=== PATIENT | male | born 1935 | race Caucasian/White ===

== ENCOUNTER 2018-08-18 14:43 | Emergency (ER) | payer MEDICARE, SELFPAY ==
[2018-08-18 14:50] VITALS: BP 124/67; PULSE 65; RESP 18; TEMP 36.1; O2SAT 97; BMI 30.8
--- NOTE | 2018-08-18 15:24 | PC.NURSE ---
low back pain for several months, worsening after fall several weeks ago, denies numbness/tingling/incont, reports MRI taken at [facility] r/t same, finished prednisone taper several weeks ago reports no relief, ambulatory ind with steady gait, reports +3 bilat lower ext edema as baseline. He states he has seen multiple doctors for this issue and is here today to see if they can get anything done.
--- NOTE | 2018-08-18 15:42 | ED.BACK ---
HPI - Back Pain/Injury <SHELL Ford-BC - Last Filed: 08/18/18 21:23> General Chief Complaint: Back Pain/Injury Stated Complaint: back pain Time Seen by Provider: 08/18/18 15:01 Source: patient Mode of arrival: ambulatory Limitations: no limitations History of Present Illness HPI Narrative: Patient presents with chief complaint of lower back pain. He states this is been going on for years. However it got worse several weeks ago after a fall. He did not hit his head or his neck in the fall. After the fall he spoke with his friend who was not reportedly an orthopedic surgeon and Dash who sent in an order for an MRI to be done at an outside facility. Patient states he had the MRI in his friend told him he has spinal stenosis. Patient is requesting to see Dr Gupta in the emergency department. He is requesting something for pain. He states that the steroids he was on or useful for a while, but now he is having pain again. He denies any numbness, tingling, incontinence of bowel or bladder or saddle anesthesia. He denies any urinary symptoms. Related Data Home Medications Medication Instructions Recorded Confirmed metolazone 08/18/18 terazosin 08/18/18 Previous Rx's Medication Instructions Recorded prednisone 40 mg PO DAILY 5 Days #10 tab 08/18/18 Allergies Allergy/AdvReac Type Severity Reaction Status Date / Time No Known Drug Allergies Allergy Verified 08/18/18 14:55 Review of Systems <BLANCA FordBC - Last Filed: 08/18/18 21:23> Review of Systems GENERAL: Denies chills, fatigue, malaise, fever, sweats. HEENT: Denies sinus pain, ear pain, sore throat, difficulty swallowing, dizziness. RESPIRATORY: Denies dyspnea, cough, wheezing, hemoptysis, sputum. CARDIOVASCULAR: Denies chest pain, palpitations, orthopnea, edema, GASTROINTESTINAL: Denies nausea, vomiting, abdominal pain, diarrhea, constipation, melena. : Denies dysuria, frequency, incontinence, hematuria, urinary retention. MUSCULOSKELETAL: See HPI SKIN: Denies rash, skin lesions, or other NEUROLOGIC: Denies weakness, headache, numbness, change in speech, confusion, seizures, incoordination. PSYCHIATRIC: No concerning psychosocial issues. 12 point review of systems is negative except for those stated above Exam <SHELL Ford-MAURA - Last Filed: 08/18/18 21:23> Narrative Exam Narrative: GENERAL: This is a well-nourished, well-developed patient, in no acute distress HEAD: Atraumatic. Normocephalic. No temporal or scalp tenderness. EYES: Pupils equal round and reactive. Extraocular motions intact. No scleral icterus. No injection or drainage. ENT: Nose without bleeding, purulent drainage or septal hematoma. Throat without erythema, tonsillar hypertrophy or exudate. Uvula midline. Airway patent. Hard of hearing NECK: Trachea midline. No JVD or lymphadenopathy. Supple, nontender, no meningeal signs. CARDIOVASCULAR: Regular rate and rhythm without murmurs, gallops, or rubs. RESPIRATORY: Clear to auscultation. Breath sounds equal bilaterally. No wheezes, rales, or rhonchi. GASTROINTESTINAL: Abdomen soft, non-tender, nondistended. No hepato-splenomegaly, or palpable masses. No guarding. EXTREMITIES: No clubbing, cyanosis, or edema. No joint tenderness, effusion, or edema noted. BACK: No CVA or T-spine tenderness to palpation. Patient has tenderness to palpation of L-spine. Patient has tenderness to palpation bilateral paraspinal muscles in L-spine region. NEURO: AOx3. Stiff gait but stable gait. No slurred speech. Radial and Achilles reflexes intact bilaterally. Strength is intact upper and lower extremities bilaterally. SKIN: No rash or erythema. No erythema ecchymosis or rash noted lower back. Initial Vital Signs Initial Vital Signs: Vital Signs Temperature 96.9 F L 08/18/18 14:50 Pulse Rate 65 08/18/18 14:50 Respiratory Rate 18 08/18/18 14:50 Blood Pressure 124/67 08/18/18 14:50 Pulse Oximetry 97 08/18/18 14:50 <Lakeshia Ramirez DO - Last Filed: 08/19/18 08:08> Initial Vital Signs Initial Vital Signs: Vital Signs Temperature 96.9 F L 08/18/18 14:50 Pulse Rate 65 08/18/18 14:50 Respiratory Rate 18 08/18/18 14:50 Blood Pressure 124/67 08/18/18 14:50 Pulse Oximetry 97 08/18/18 14:50 Course <BLANCA Ford - Last Filed: 08/18/18 21:23> Course Narrative: Patient presented with chief complaint of back pain. He states he had a diagnosis of spinal stenosis. MRI results were obtained from outside facility. Impression of MRI was multiple levels of relatively prominent digit 100 of changes are seen including multiple levels of moderate to severe neural foraminal narrowing at several levels of prominent central canal narrowing. Orders Ordered: Discontinued Medications Prednisone (Deltasone) 40 mg PO NOW ONE Stop: 08/18/18 16:23 Last Admin: 08/18/18 16:35 Dose: 40 mg Vital Signs - 8 hr 08/18/18 14:50 Temperature 96.9 F L Pulse Rate 65 Respiratory Rate 18 Blood Pressure 124/67 Pulse Oximetry 97 <Lakeshia Ramirez DO - Last Filed: 08/19/18 08:08> Orders Ordered: Discontinued Medications Prednisone (Deltasone) 40 mg PO NOW ONE Stop: 08/18/18 16:23 Last Admin: 08/18/18 16:35 Dose: 40 mg Vital Signs - 8 hr 08/18/18 14:50 Temperature 96.9 F L Pulse Rate 65 Respiratory Rate 18 Blood Pressure 124/67 Pulse Oximetry 97 MDM - Back Pain/Injury <EVELIN FordP-BC - Last Filed: 08/18/18 21:23> Lab Data Lab Results 08/18/18 Range/Units Unknown Urine Color Yellow Urine Appearance Slightly cloudy Urine pH 5.0 (4.5-8.0) Ur Specific Hollis 1.015 (1.000-1.035) Urine Protein Negative (Negative) Urine Glucose (UA) Negative (Normal) g/dL Urine Ketones Negative (NEGATIVE) Urine Occult Blood Negative (Negative) Urine Nitrate Negative (Negative) Urine Bilirubin Negative (NEGATIVE) Urine Urobilinogen 0.2 (0.2) E.U./dL Ur Leukocyte Esterase 2+ H (NEGATIVE) Urine RBC 0-1/hpf (0-5/HPF) Urine WBC 30-100/hpf H (0-5/HPF) Ur Squamous Epith Cells 0-1 /hpf Urine Bacteria Occasional (0-1) (None) Hyaline Casts 10-30/lpf (None) Ur Culture Indicated? Specimen cultured Micro UA Comment Not Reportable Urine Dip Bedside Urine Glucose Negative Bedside Urine Bilirubin - Negative Bedside Urine Ketone - Negative Urine Specific Hollis 1.020 Bedside Urine Occult Blood - Negative Bedside Urine pH 6.0 Bedside Urine Protein +/- 15 Bedside Urine Urobilinogen - Negative Bedside Urine Nitrite - Negative Bedside Urine Leukocytes +++ 500 Esterase MDM Narrative Medical decision making narrative: Patient presents with chief complaint of lower back pain. MRI illustrates spinal stenosis. Patient arrived to the emergency department presuming that he would be able to see Dr. Finch today for his pain. I gave him contact information for both Dr. Finch as well as [facility]. Of note patient did have leuks on his UA. He declined antibiotics for UTI this point in time but urine culture is pending at this point time. I discussed at length return precautions of numbness, tingling, saddle anesthesia incontinence of bowel or bladder. Patient no questions or concerns upon discharge. I did give him a burst of steroids and offered him pain medication given to spinal stenosis but he declined both NSAIDs and narcotics at this point time. I encouraged him to follow up with primary care provider as well. <Lakeshia Ramirez, DO - Last Filed: 08/19/18 08:08> Lab Data Lab Results 08/18/18 Range/Units Unknown Urine Color Yellow Urine Appearance Slightly cloudy Urine pH 5.0 (4.5-8.0) Ur Specific Hollis 1.015 (1.000-1.035) Urine Protein Negative (Negative) Urine Glucose (UA) Negative (Normal) g/dL Urine Ketones Negative (NEGATIVE) Urine Occult Blood Negative (Negative) Urine Nitrate Negative (Negative) Urine Bilirubin Negative (NEGATIVE) Urine Urobilinogen 0.2 (0.2) E.U./dL Ur Leukocyte Esterase 2+ H (NEGATIVE) Urine RBC 0-1/hpf (0-5/HPF) Urine WBC 30-100/hpf H (0-5/HPF) Ur Squamous Epith Cells 0-1 /hpf Urine Bacteria Occasional (0-1) (None) Hyaline Casts 10-30/lpf (None) Ur Culture Indicated? Specimen cultured Micro UA Comment Not Reportable Urine Dip Bedside Urine Glucose Negative Bedside Urine Bilirubin - Negative Bedside Urine Ketone - Negative Urine Specific Hollis 1.020 Bedside Urine Occult Blood - Negative Bedside Urine pH 6.0 Bedside Urine Protein +/- 15 Bedside Urine Urobilinogen - Negative Bedside Urine Nitrite - Negative Bedside Urine Leukocytes +++ 500 Esterase Discharge Plan Departure Patient Disposition: Home Clinical Impression: Spinal stenosis Discharge Date/Time: 08/18/18 17:16 Interventions: ED Discharge Assessment Last Done: 08/18/18 17:16 Instructions: DI for Low Back Pain, DI for Spinal Stenosis Activity Restrictions/Additional Instructions: I am giving you steroids for spinal stenosis. Please follow-up with your primary care provider. I have given you contact information for Dr. Finch as well as [facility]. Please be re-evaluated if you have any numbness, bowel incontinence, bladder incontinence or saddle anesthesia. We are sending her urine out for culture to see if it grows any bacteria in you may hear about that if there are any questions of infection. Prescriptions: New prednisone 20 mg tablet 40 mg PO DAILY 5 Days Qty: 10 RF: 0 No Action metolazone 2.5 mg tablet RF: 0 terazosin 5 mg capsule RF: 0 Referrals: [facility] [Outside] Alf Finch DO [Physician] - <Lakeshia Ramirez DO - Last Filed: 08/19/18 08:08> Cosign ED Attending Rupinderature Attestation: I was immediately available in the department for consultation. Documentation has been reviewed. I agree with assessment and plan.
[2018-08-18] MEDS: predniSONE 20 MG TABLET 40 MG PO (16:35)
[2018-08-18 16:37] LABS: Bilirubin Urine UA NEGATIVE (NEGATIVE); Color Urine UA YELLOW; Glucose Urine UA NEGATIVE (Normal); Ketones Urine UA NEGATIVE (NEGATIVE); Leukocyte Esterase Urine UA 2+ (NEGATIVE); Nitrite Urine UA Negative (Negative); Occult Blood Urine UA NEGATIVE (Negative); Protein Urine UA NEGATIVE (Negative); Specific Gravity Urine UA 1.015 (1.000-1.035); Urobilinogen Urine UA 0.2 E.U./dL (0.2)
[2018-08-18 16:44] LABS: Appearance Urine UA Slightly Cloudy
[2018-08-18 16:46] LABS: Bacteria Urine Occasional (0-1); Culture Indicated Urine Specimen Cultured; Hyaline Casts Urine 10-30/LPF; RBC Urine 0-1/HPF (0-5/HPF); Squamous Epithelial Cell Urine 0-1 /HPF; WBC Urine 30-100/HPF (0-5/HPF)
--- NOTE | 2018-08-21 17:21 | PC.NURSE ---
follow up call, pt better, next appt with dr evans not till november. no questions from pts pleased with visit.
== END 2018-08-18 17:16 | disposition home or self-care (01) ==
PROVIDERS: Emergency Provider Nurse Practitioner Family
DX: M48.00 Spinal stenosis, site unspecified (principal)
CPT/HCPCS: 81001; 81003; 87086; 99282; 99283

== ENCOUNTER 2018-12-09 12:56 | Outpatient (CLI) | payer OTHER, SELFPAY ==
[2018-12-09] VITALS (9 sets, daily range): BP systolic 134–161; BP diastolic 64–85; PULSE 62–69; RESP 16–18; TEMP 35.9; O2SAT 93–99
--- NOTE | 2018-12-09 12:58 | DI.RAD.S_ITS ---
PROCEDURE: PAIN L INTERLAMINAR/CAUDAL INJ INDICATIONS: SPINAL STENOSIS FINDINGS: Fluoroscopic spot filming was performed to verify placement of spinal needles at the L3-L4 level(s), as labeled on the films. Appropriate location(s) of the needle tip(s) was confirmed by injection of iodinated contrast. IMPRESSION: Fluoroscopy for pain management. Dictated by: Stephanie Kaufman M.D. on 12/09/2018 at 17:42 Approved by: Stephanie Kaufman M.D. on 12/09/2018 at 17:42
[2018-12-09] MEDS: MIDAZOLAM 5 MG/5 ML VIAL IV (13:55)
[2018-12-09] MEDS: BUPIVACAINE 0.25% (PF) VIAL 2 ML INJ (14:05)
[2018-12-09] MEDS: DEXAMETHASONE 10 MG/ML VIAL 20 MG INJ (14:06)
[2018-12-09] MEDS: methylPREDNISolone acetate 80 MG/ML VIAL INJ (14:06)
[2018-12-09] MEDS: IOPAMIDOL 15 ML VIAL 3 ML INJ (14:06)
--- NOTE | 2018-12-09 14:11 | P.PCN_ITS ---
Procedures Date/Time Date of procedure: 12/09/18 Time of procedure: 14:10 General Procedure description: POST OP DIAGNOSIS 1. HNP WITH RADICULAR FEATURES, 2. MULTILEVEL CENTRAL STENOSIS, PROCEDURES 1. FLUORSCOPICALLY GUIDED CONTRAST CONTROLLED INTERLAMINAR EPIDURAL STEROID INJECTION - L3/4 PHYSICIAN: Alf Finch DO INDICATIONS is referred by Dr. Reyes for treatment of Bilateral Foraminal Stenosis L>R LE symptoms. FINDINGS Multilevel Central Spinal Stenosis with Nerve Root Compression DESCRIPTION OF PROCEDURE Fluoroscopically guided, contrast-controlled L3/4 translaminar epidural steroid injection. Following denial of allergy and review of potential side effects and complications, including, but not necessarily limited to, infection, allergic reaction, local tissue breakdown, temporary as well as permanent nerve injury, paralysis, stroke and possible , the patient indicated that the patient understood and agreed to proceed. An informed consent document was signed by the patient, witnessed by a nurse, and placed in the patient's chart. Additionally, other treatment options including modalities, medications, and physical therapy were reviewed with the patient. After review of previous anaesthesic history and IV conscious sedation the patient was deemed safe to proceed with todays procedure with IV conscious sedation as ASA class II designation. Safety time-out was performed to confirm patient ID, procedure to be performed and site of procedure. IV sedation was accomplished with a combination of 2mg was administered by the RN after DO order , titrated to patient comfort during the course of the procedure while the patient remained responsive to all verbal commands. In the prone position, following sterile prep and drape of the lumbar region, the L3/4 translaminar space was identified fluoroscopically. The skin was anesthetized via a 25-gauge, 1.5-inch needle with 1% lidocaine solution. At this point, a 22-gauge short bevel spinal needle was atraumatically introduced and advanced under fluoroscopic guidance into the region of the L3/4 translaminar space. Depth was confirmed on lateral view. Radiological data, including multiple fluoroscopic views of the lumbar spine, reveal a spinal needle at the L3/4 translaminar space. Lateral views then show placement of the needle in the epidural space. Subsequent views show contrast material flowing superiorly and inferiorly in the epidural space. No vascular or intrathecal uptake is observed. At this point, using loss of resistance technique with saline and air, the epidural space was entered. This was confirmed following negative aspiration with injection of approximately 1.5 cc of Isovue 200, showing excellent epidural flow without vascular or intrathecal uptake. At this point, 1 cc of 1 % lidocaine solution combined with 3 cc or 20 mg of dexamethasone and 80mg Depo medrol was injected without incident. The patient tolerated the procedure well without signs or symptoms of complications prior to transfer to the recovery area continued monitoring without incident. The patient was then transferred to the recovery area where they were observed for an appropriate period of time after the injection. The patient reported a VAS score of 6 prior to the procedure and a post- procedure VAS of 0. Total Fluoroscopy Time: 11.8 seconds Total Conscious Sedation Time: 24min POST OP INSTRUCTIONS The patient was provided a Pain Log to continue to record their response to the target-specific procedure prior to follow-up visit with their referring physician. Additionally, specific post-injection care instructions and a contact number to our office were provided if concerns arise regarding possible complications associated with the procedure are suspected. Alf Finch, Complications: none
--- NOTE | 2018-12-09 14:29 | PC.NURSE ---
pt tolerated procedure and assisted pt off the table 2 person, pt able to help. Transferred pt to pre procedure room via w/c for resumed monitoring by Ghazala BRAMBILA.
--- NOTE | 2018-12-10 16:13 | PC.NURSE ---
FOLLOW UP CALL MADE. PT STATES HE IS MORE MOBILE AND PAIN IS GONE. DENIES QUESTIONS/CONCERNS.
== END 2018-12-09 14:58 | disposition home or self-care (01) ==
LOC: RAD 12:58
PROVIDERS: PCP Emergency Medicine Emergency Medical Services; Visit Provider Physical Medicine & Rehabilitation
DX: M51.16 Intervertebral disc disorders with radiculopathy, lumbar region (principal); M48.061 Spinal stenosis, lumbar region without neurogenic claudication; M47.27 Other spondylosis with radiculopathy, lumbosacral region
CPT/HCPCS: 62323; 99152; J1040; J1100; J2250

== ENCOUNTER 2019-01-27 14:21 | Outpatient (CLI) | payer OTHER, SELFPAY ==
--- NOTE | 2019-01-27 14:23 | DI.RAD.S_ITS ---
PROCEDURE: PAIN L INTERLAMINAR/CAUDAL INJ INDICATIONS: SPONDYLOSIS FINDINGS: Fluoroscopic spot filming was performed to verify placement of spinal needles at the L4-L5 level(s), as labeled on the films. Appropriate location(s) of the needle tip(s) was confirmed by injection of iodinated contrast. Dictated by: Fran Joyner M.D. on 01/27/2019 at 15:32 Approved by: Fran Joyner M.D. on 01/27/2019 at 15:32
[2019-01-27 14:32] VITALS: BP 125/59; PULSE 65; RESP 18; TEMP 36.1; O2SAT 97
[2019-01-27 14:49] VITALS: BP 123/64; PULSE 73; RESP 16; O2SAT 98
--- NOTE | 2019-01-27 14:50 | PC.NURSE ---
NO SEDATION MEDS GIVEN AT THIS TIME
[2019-01-27 14:53] VITALS: BP 123/64; PULSE 70; RESP 16; O2SAT 97
[2019-01-27] MEDS: BUPIVACAINE 0.25% (PF) VIAL 2 ML INJ (14:54)
[2019-01-27] MEDS: DEXAMETHASONE 10 MG/ML VIAL 20 MG INJ (14:55)
[2019-01-27] MEDS: IOPAMIDOL 15 ML VIAL 3 ML INJ (14:55)
[2019-01-27 14:56] VITALS: BP 136/66; PULSE 70; RESP 16; O2SAT 97
--- NOTE | 2019-01-27 14:57 | PC.NURSE ---
NO SEDATION MEDS GIVEN. ASSISTING PT OFF TABLE AND TRANSPORTING TO POST PROC AREA IN STABLE CONDITION
[2019-01-27 15:03] VITALS: BP 130/100; PULSE 66; RESP 18; O2SAT 97
--- NOTE | 2019-01-27 15:05 | P.PCN_ITS ---
Procedures Date/Time Date of procedure: 01/27/19 Time of procedure: 15:04 General Procedure description: PROVIDER: Alf Finch DO Operative Note PREOP DIAGNOSIS 1. HNP WITH RADICULAR FEATURES, 2. MULTILEVEL CENTRAL STENOSIS, POST OP DIAGNOSIS 1. HNP WITH RADICULAR FEATURES, 2. MULTILEVEL CENTRAL STENOSIS PROCEDURES 1. FLUORSCOPICALLY GUIDED CONTRAST CONTROLLED INTERLAMINAR EPIDURAL STEROID INJECTION -L4/5 PHYSICIAN: Alf Finch DO INDICATIONs: is referred by for treatment of Bilateral Foraminal Stenosis R>L LE symptoms. FINDINGS Multilevel Central Spinal Stenosis with Nerve Root Compression DESCRIPTION OF PROCEDURE Fluoroscopically guided, contrast-controlled L4/5 translaminar epidural steroid injection. Following denial of allergy and review of potential side effects and complications, including, but not necessarily limited to, infection, allergic reaction, local tissue breakdown, temporary as well as permanent nerve injury, paralysis, stroke and possible , the patient indicated that the patient understood and agreed to proceed. An informed consent document was signed by the patient, witnessed by a nurse, and placed in the patient's chart. Additionally, other treatment options including modalities, medications, and physical therapy were reviewed with the patient. After review of previous anaesthesic history and IV conscious sedation the patient was deemed safe to proceed with todays procedure with IV conscious sedation as ASA class II designation. Safety time-out was performed to confirm patient ID, procedure to be performed and site of procedure. IV sedation was deemed unnecessary and thus not administered by the RN after DO order, titrated to patient comfort during the course of the procedure while the patient remained responsive to all verbal commands In the prone position, following sterile prep and drape of the lumbar region, the L4/5 translaminar space was identified fluoroscopically. The skin was anesthetized via a 25-gauge, 1.5-inch needle with 1% lidocaine solution. At this point, a 22-gauge short bevel spinal needle was atraumatically introduced and advanced under fluoroscopic guidance into the region of the L4/5 translaminar space. Depth was confirmed on lateral view. Radiological data, including multiple fluoroscopic views of the lumbar spine, reveal a spinal needle at the L4/5 translaminar space. Lateral views then show placement of the needle in the epidural space. Subsequent views show contrast material flowing superiorly and inferiorly in the epidural space. No vascular or intrathecal uptake is observed. At this point, using loss of resistance technique with saline and air, the epidural space was entered. This was confirmed following negative aspiration with injection of approximately 1.5 cc of Isovue 200, showing excellent epidural flow without vascular or intrathecal uptake. At this point, 1 cc of 1% lidocaine solution combined with 2cc or 20mg of dexamethasone was injected without incident. The patient tolerated the procedure well without signs or symptoms of complications prior to transfer to the recovery area continued monitoring without incident. The patient was then transferred to the recovery area where they were observed for an appropriate period of time after the injection. The patient reported a VAS score of 6 prior to the procedure and a post- procedure VAS of 0. Total Fluoroscopy Time: 11.8 seconds, 8.99 mGy Total Conscious Sedation Time: 24min POST OP INSTRUCTIONS The patient was provided a Pain Log to continue to record their response to the target-specific procedure prior to follow-up visit with their referring physician. Additionally, specific post-injection care instructions and a contact number to our office were provided if concerns arise regarding possible complications associated with the procedure are suspected. Alf Finch DO Complications: none
--- NOTE | 2019-01-28 15:09 | PC.NURSE ---
Follow up call made but patient did not answer phone so message left.
== END 2019-01-27 15:42 ==
LOC: RAD 14:22
PROVIDERS: PCP Emergency Medicine Emergency Medical Services; Visit Provider Physical Medicine & Rehabilitation
DX: M51.16 Intervertebral disc disorders with radiculopathy, lumbar region (principal); M48.061 Spinal stenosis, lumbar region without neurogenic claudication; M47.27 Other spondylosis with radiculopathy, lumbosacral region
CPT/HCPCS: 62323; J1100; J2250

== ENCOUNTER 2019-02-24 14:30 | Outpatient (RCR) | payer OTHER, SELFPAY ==
--- NOTE | 2018-09-22 17:13 | PT.OPPOC ---
Current Diagnoses Low back pain (09/22/18) Provider Visit Care Team Role Provider Type Robin eRyes MD Attending Provider Non-Staff Primary Care Provider Specialty: Emergency Medicine Address: [address] [place] [address], [id number] Email: Plan Of Care PT-OP-T Assessment and Plan Start: 09/22/18 16:27 Freq: Status: Active Protocol: Document 09/22/18 17:22 MARTIN (Rec: 10/06/18 07:31 EA [id number]) Physical Therapy Assessment Rehab Potential Rehabilitation Potential Fair Evaluation Complexity Number of Personal Factors/Comorbidities 3 or More Number of Body Systems Impaired 3 Clinical Presentation at Evaluation Evolving Impairments Impairments Activity Tolerance Gait Pain Posture ROM Soft Tissue Mobility Strength Other Concerns Fall Risk Yes Goals Five Impairment No HEP in place Nursing Home Goal (LTG) Patient will comply to HEP with good understanding to safety. LTG Duration 4 wks Four Impairment Impaired lifting mechanics [employer] Goal (LTG) Patient will perform good lifting mechanics to decrease condition worsening. LTG Duration 4 wks Three Impairment Impaired walking tolerance [employer] Goal (LTG) Patient will ambulate more than 10 mins with no increase in symptoms LTG Duration 4 wks Two Impairment Impaired standing tolerance [employer] Goal (LTG) Patient will stand more than 10 mins with no increase in symptoms LTG Duration 4 wks One Impairment Oswestry score of 26/50 [employer] Goal (LTG) Patient will have Oswetry low back pain score of mor then 40 /50 LTG Duration 4 wks Assessment Summary Assessment Pleasant 82 y/o M patient with a referring diagnosis of low back pain. Patient presented today with bed mobility and gait difficulty with decreased standing tolerance. 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 Palpation reveals tender over SI joint, paralumbars, QL , and Lumbosacral fascia. 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 Due to above mentioned dysfunction, patient is limited in functional mobility that requires standing and bending. In my professional opinion, Patient would benefit with skilled PT to reach functional goals and improve quality of life. Physical Therapy Plan Frequency and Duration Frequency of Treatment 2x/Week Duration of Treatment 12 wks Plan of Care Start Date 09/22/18 Plan of Care End Date 12/15/18 Therapeutic Interventions Therapeutic Interventions Gait Training Home Exercise Program Joint Mobilizations Manual Therapy Patient/Caregiver Education Self-Care/Home Management Therapeutic Exercises Modalities Cold Pack/Ice Massage Electric Stimulation Hot Packs Ultrasound Next Visit Focus/Plan Next Note Type Treatment Note Plan of Care Dates Plan of Care Start Date 09/22/18 Plan of Care End Date 12/15/18 Please Sign and Return: I have reviewed this Plan of Care and certify that the skilled therapy services above are required to meet the patient?s needs. Physician Signature Date Printed Name and Credentials Clinical Instructor Signature Printed Name and Credentials
--- NOTE | 2018-09-22 17:13 | PT.OIE ---
Current Diagnoses Low back pain (09/22/18) Provider Visit Care Team Role Provider Type Robin Reyes MD Attending Provider Non-Staff Primary Care Provider Specialty: Emergency Medicine Address: [address] [place] [address], [id number] Email: Physical Therapy Initial Evaluation PT-OP-A Visit Information Start: 09/22/18 16:27 Freq: Status: Active Protocol: Document 09/22/18 17:22 EA (Rec: 10/06/18 07:31 EA [id number]) Out-Patient Physical Therapy Visit Information Visit Information Visit Type Initial Evaluation Total Visit Minutes 40 Visit Number 1 Evaluation Information Evaluation Date 09/22/18 PT-OP-B Current Condition Start: 09/22/18 16:27 Freq: Status: Active Protocol: Document 09/22/18 17:22 EA (Rec: 10/06/18 07:31 EA [id number]) Current Condition History of Current Condition Onset Date June 2018 History of Current Condition Present condition has been chronic for more than 5 years and exacerbated last June 2018 with no known reason. Patient had RLE surgery while in [place] and denies regain of full RLE strength. 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 [facility] X-ray done: Spinal stenosis dx. Future Testing and Treatments Planned None identified. 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 Current Functional Impairments (Reported) Functional Limitations- ADL's Indep with difficulty in all activities with lifting and bending Functional Limitations- Mobility/Gait Indep with limited distance Functional Limitations- Work/School Limited at work in the machine shop PT-OP-C Subjective Start: 09/22/18 16:27 Freq: Status: Active Protocol: Document 09/22/18 17:22 EA (Rec: 10/06/18 07:31 EA [id number]) OP-PT Subjective Patient Comments Patient Comments C/O localized low back pain rated 6/10 which is more in standing and walking activities. Patient Reported Progress Worse Patient Questionnaires Oswestry Low Back Index Oswestry Score 26/50 Oswestry Impairment 40 to 59% Impaired (Score 40- 59) OP-PT Pain Assessment Location Bilateral Lower Back Pain Location Details Paraspinals, SI joint Intensity 5 Scale Used Numeric (1 - 10) Description Aching Frequency Intermittent Pain Aggravating Factors Activity Standing Walking Bending Lifting Patient Stated Pain Goal 1 Home Pain Medication Use Pain Medications Used Yes Pain Behaviors Pain Behaviors Holding Area PT-OP-F Manual Assessment Start: 09/22/18 16:27 Freq: Status: Active Protocol: Document 09/22/18 17:22 EA (Rec: 10/06/18 07:31 EA [id number]) Manual Assessments Soft Tissue Assessment Soft Tissue Mobility Assessment Tight Paralumbars, QL. PT-OP-G Mobility & Gait Start: 09/22/18 16:27 Freq: Status: Active Protocol: Document 09/22/18 17:22 EA (Rec: 10/06/18 07:31 EA [id number]) OP Gait Assessment Gait Gait Assistance Required: Independent Able to Maintain Weight Bearing Status Yes During Gait Gait Deviations General Gait Pattern Antalgic Lateral Trunk Lean Factors Limiting Gait Function Factors Limiting Gait Function Decreased Activity Tolerance Decreased Strength Pain PT-OP-J Posture/Palpation/Skin Start: 09/22/18 16:27 Freq: Status: Active Protocol: Document 09/22/18 17:25 EA (Rec: 10/07/18 07:29 EA [id number]) Posture Evaluation Position Standing Evaluation View lat/post L-Spine Posture Increased Lordosis Pelvis Posture Anteriorly Tilted Comments Posture Comments Fair posture with increased lumbar lordosis Palpation Assessment Location One Palpation Location Both Paralumbars, QL, SI joint Palpation Findings Soft Tissue Tightness Tenderness Skin Assessment Other Assessments Skin Assessment Comments Bilateral pedal edema pitting edema PT-OP-K Range of Motion Start: 09/22/18 16:27 Freq: Status: Active Protocol: Document 09/22/18 17:25 EA (Rec: 10/07/18 07:29 EA [id number]) Lumbar Spine Range of Motion Lumbar Spine Active Percentage Testing Position Standing Flexion 75 Extension 60 Rotation Left 50 Rotation Right 50 Lateral Flexion Left 30 Lateral Flexion Right 40 ROM Limitations Soft Tissue Tightness Pain PT-OP-L Special Tests Start: 09/22/18 16:27 Freq: Status: Active Protocol: Document 09/22/18 17:05 EA (Rec: 10/07/18 08:10 EA [id number]) Special Tests Lumbar Spine Special Tests Stork Test Test Results - Slump Test Results - Other- 1 Test Results + Debbie's PT-OP-M Strength Start: 09/22/18 16:27 Freq: Status: Active Protocol: Document 09/22/18 17:05 EA (Rec: 10/07/18 08:10 EA [id number]) Hip Strength Hip Manual Muscle Testing Right Flexion (L2) 2+ Poor+ Extension (S1) 3+ Fair+ Abduction 3+ Fair+ Adduction 4 Good External Rotation 3- Fair- Internal Rotation 3- Fair- Knee Strength Knee Manual Muscle Testing Right Flexion (S2) 3+ Fair+ Extension (L3) 3+ Fair+ Ankle/Foot Strength Ankle and Foot Manual Muscle Testing Right Dorsiflexion (L4) 3- Fair- Plantarflexion (S1) 3- Fair- Inversion 3- Fair- Eversion (S1) 3- Fair- PT-OP-Q Treatments Start: 09/22/18 16:27 Freq: Status: Active Protocol: Document 09/22/18 17:10 EA (Rec: 10/07/18 08:11 EA [id number]) Self-Care/Home Management Treatment Education Patient Education Home Exercise Program Joint Protection Pain Management Posture PT-OP-T Assessment and Plan Start: 09/22/18 16:27 Freq: Status: Active Protocol: Document 09/22/18 17:22 EA (Rec: 10/06/18 07:31 EA [id number]) Physical Therapy Assessment Rehab Potential Rehabilitation Potential Fair Evaluation Complexity Number of Personal Factors/Comorbidities 3 or More Number of Body Systems Impaired 3 Clinical Presentation at Evaluation Evolving Impairments Impairments Activity Tolerance Gait Pain Posture ROM Soft Tissue Mobility Strength Other Concerns Fall Risk Yes Goals Five Impairment No HEP in place Snf Goal (LTG) Patient will comply to HEP with good understanding to safety. LTG Duration 4 wks Four Impairment Impaired lifting mechanics [employer] Sales Goal (LTG) Patient will perform good lifting mechanics to decrease condition worsening. LTG Duration 4 wks Three Impairment Impaired walking tolerance Snf Goal (LTG) Patient will ambulate more than 10 mins with no increase in symptoms LTG Duration 4 wks Two Impairment Impaired standing tolerance [employer] Goal (LTG) Patient will stand more than 10 mins with no increase in symptoms LTG Duration 4 wks One Impairment Oswestry score of 26/50 [employer] Goal (LTG) Patient will have Oswetry low back pain score of mor then 40 /50 LTG Duration 4 wks Assessment Summary Assessment Pleasant 82 y/o M patient with a referring diagnosis of low back pain. Patient presented today with bed mobility and gait difficulty with decreased standing tolerance. 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 Palpation reveals tender over SI joint, paralumbars, QL , and Lumbosacral fascia. 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 Due to above mentioned dysfunction, patient is limited in functional mobility that requires standing and bending. In my professional opininion, Patient would benefit with skilled PT to reach functional goal and improve quality of life. Physical Therapy Plan Frequency and Duration Frequency of Treatment 2x/Week Duration of Treatment 12 wks Plan of Care Start Date 09/22/18 Plan of Care End Date 12/15/18 Therapeutic Interventions Therapeutic Interventions Gait Training Home Exercise Program Joint Mobilizations Manual Therapy Patient/Caregiver Education Self-Care/Home Management Therapeutic Exercises Modalities Cold Pack/Ice Massage Electric Stimulation Hot Packs Ultrasound Next Visit Focus/Plan Next Note Type Treatment Note
--- NOTE | 2018-10-15 10:08 | PT.OTN ---
Current Diagnoses Low back pain (10/15/18) Physical Therapy Treatment Note PT-OP-A Visit Information Start: 09/22/18 16:27 Freq: Status: Active Protocol: Document 10/15/18 09:35 EA (Rec: 10/15/18 09:38 EA [id number]) Out-Patient Physical Therapy Visit Information Visit Information Visit Type Treatment Note Visit Start Time 09:00 Visit Stop Time 09:45 Total Visit Minutes 45 Visit Number 2 Number of HIGH SCHOOL [employer]ACH Visits 0 PT-OP-B Current Condition Start: 09/22/18 16:27 Freq: Status: Active Protocol: Document 09/22/18 17:22 EA (Rec: 10/06/18 07:31 EA [id number]) Current Condition History of Current Condition Onset Date June 2018 History of Current Condition Present condition has been chronic for more than 5 years and excacerbated last June 2018 with no known reason. Patient had RLE surgery while in [place] and denies regain of full RLE strength. 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 [facility] X-ray done: Spinal stenosis dx. Future Testing and Treatments Planned None identified. 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 Current Functional Impairments (Reported) Functional Limitations- ADL's Indep with difficulty in all activities with lifting and bending Functional Limitations- Mobility/Gait Indep with limited distance Functional Limitations- Work/School Limited at work in the machine shop PT-OP-C Subjective Start: 09/22/18 16:27 Freq: Status: Active Protocol: Document 10/15/18 09:35 EA (Rec: 10/15/18 09:38 EA [id number]) OP-PT Subjective Patient Comments Patient Comments Pt reports low back pain is the same PT-OP-F Manual Assessment Start: 09/22/18 16:27 Freq: Status: Active Protocol: Document 09/22/18 17:22 EA (Rec: 10/06/18 07:31 EA [id number]) Manual Assessments Soft Tissue Assessment Soft Tissue Mobility Assessment Tight Paralumbars, QL. PT-OP-G Mobility & Gait Start: 09/22/18 16:27 Freq: Status: Active Protocol: Document 09/22/18 17:22 EA (Rec: 10/06/18 07:31 EA [id number]) OP Gait Assessment Gait Gait Assistance Required: Independent Able to Maintain Weight Bearing Status Yes During Gait Gait Deviations General Gait Pattern Antalgic Lateral Trunk Lean Factors Limiting Gait Function Factors Limiting Gait Function Decreased Activity Tolerance Decreased Strength Pain PT-OP-J Posture/Palpation/Skin Start: 09/22/18 16:27 Freq: Status: Active Protocol: Document 09/22/18 17:25 EA (Rec: 10/07/18 07:29 EA [id number]) Posture Evaluation Position Standing Evaluation View lat/post L-Spine Posture Increased Lordosis Pelvis Posture Anteriorly Tilted Comments Posture Comments Fair posture with increased lumbar lordosis Palpation Assessment Location One Palpation Location Both Paralumbars, QL, SI joint Palpation Findings Soft Tissue Tightness Tenderness Skin Assessment Other Assessments Skin Assessment Comments Bilateral pedal edema pitting edema PT-OP-K Range of Motion Start: 09/22/18 16:27 Freq: Status: Active Protocol: Document 09/22/18 17:25 EA (Rec: 10/07/18 07:29 EA [id number]) Lumbar Spine Range of Motion Lumbar Spine Active Percentage Testing Position Standing Flexion 75 Extension 60 Rotation Left 50 Rotation Right 50 Lateral Flexion Left 30 Lateral Flexion Right 40 ROM Limitations Soft Tissue Tightness Pain PT-OP-L Special Tests Start: 09/22/18 16:27 Freq: Status: Active Protocol: Document 09/22/18 17:05 EA (Rec: 10/07/18 08:10 EA [id number]) Special Tests Lumbar Spine Special Tests Stork Test Test Results - Slump Test Results - Other- 1 Test Results + Debbie's PT-OP-M Strength Start: 09/22/18 16:27 Freq: Status: Active Protocol: Document 09/22/18 17:05 EA (Rec: 10/07/18 08:10 EA [id number]) Hip Strength Hip Manual Muscle Testing Right Flexion (L2) 2+ Poor+ Extension (S1) 3+ Fair+ Abduction 3+ Fair+ Adduction 4 Good External Rotation 3- Fair- Internal Rotation 3- Fair- Knee Strength Knee Manual Muscle Testing Right Flexion (S2) 3+ Fair+ Extension (L3) 3+ Fair+ Ankle/Foot Strength Ankle and Foot Manual Muscle Testing Right Dorsiflexion (L4) 3- Fair- Plantarflexion (S1) 3- Fair- Inversion 3- Fair- Eversion (S1) 3- Fair- PT-OP-Q Treatments Start: 09/22/18 16:27 Freq: Status: Active Protocol: Document 10/15/18 09:35 EA (Rec: 10/15/18 09:38 EA [id number]) Cardio Equipment Recumbent Stepper (Sci-Fit) Duration (Minutes) 6 Resistance 1.5 Seat Position 12 Therapeutic Exercises Supine Exercises 2 Supine Exercise Name SKTC (Gentle) Side bilateral Reps/Minutes x 15 SH x 2 reps 1 Supine Exercise Name Passive hamstringand piriformis gentle stretch Side bilateral Reps/Minutes x 15 SH x 2 reps Sitting Exercises 1 Sitting Exercise Name Lumbars ext stretch (Leaning fwd Side bilateral Reps/Minutes x 30SH x 2 reps Comments assess breathing Manual Therapy Treatment Soft Tissue Mobilization 1 Body Location Paralumbars/ Left QL Mobilization Type Myofascial Release Rolling Sustained Pressure Trigger Point Release Body Position Sitting Comments Bolster in the front to support upper body when leaning fwd. PT-OP-R Modalities Start: 09/22/18 16:27 Freq: Status: Active Protocol: Document 10/15/18 09:42 EA (Rec: 10/15/18 09:43 EA [id number]) Electric Stimulation Electric Stimulation Interferential Current (IFC) Body Location Paralumbars; left QL Duration (Minutes) 15 Intensity 14 Combined With Heat/Cold Hot Pack PT-OP-T Assessment and Plan Start: 09/22/18 16:27 Freq: Status: Active Protocol: Document 10/15/18 09:43 EA (Rec: 10/15/18 09:46 EA [id number]) Physical Therapy Assessment Assessment Summary Assessment Patient requires helps from supine to sit; gentle manual therapy is necessary as patient is very sensitive to pain. Tolerated treatment with no signs of cardiopulmonary symptoms. Physical Therapy Plan Next Visit Focus/Plan Next Note Type Treatment Note Next Visit Plan Gradual excercises is necessary due to patient decreased tolerance.
--- NOTE | 2018-10-22 18:45 | PT.OTN ---
Current Diagnoses Low back pain (10/22/18) Physical Therapy Treatment Note PT-OP-A Visit Information Start: 09/22/18 16:27 Freq: Status: Active Protocol: Document 10/22/18 16:00 HH (Rec: 10/22/18 18:45 [id number]) Out-Patient Physical Therapy Visit Information Visit Information Visit Type Treatment Note Visit Start Time 16:00 Visit Stop Time 16:45 Total Visit Minutes 45 Visit Number 3 Number of DUST SAMPLER Visits 0 PT-OP-B Current Condition Start: 09/22/18 16:27 Freq: Status: Active Protocol: Document 09/22/18 17:22 EA (Rec: 10/06/18 07:31 EA [id number]) Current Condition History of Current Condition Onset Date June 2018 History of Current Condition Present condition has been chronic for more than 5 years and excacerbated last June 2018 with no known reason. Patient had RLE surgery while in [place] and denies regain of full RLE strength. 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 [facility] X-ray done: Spinal stenosis dx. Future Testing and Treatments Planned None identified. 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 Current Functional Impairments (Reported) Functional Limitations- ADL's Indep with difficulty in all activities with lifting and bending Functional Limitations- Mobility/Gait Indep with limited distance Functional Limitations- Work/School Limited at work in the machine shop PT-OP-C Subjective Start: 09/22/18 16:27 Freq: Status: Active Protocol: Document 10/22/18 16:00 HH (Rec: 10/22/18 18:45 HH [email or web address]) OP-PT Subjective Patient Comments Patient Comments Pt presents to clinic My back pain is around the same 4 /10, symptoms get worse during bending motions and i have not done any exercises at home . Patient Reported Progress Same OP-PT Pain Assessment Location Bilateral Lower Back Intensity 4 Scale Used Numeric (1 - 10) Description Aching Dull Frequency Constant Pain Aggravating Factors Position Changing Position Bending PT-OP-F Manual Assessment Start: 09/22/18 16:27 Freq: Status: Active Protocol: Document 09/22/18 17:22 EA (Rec: 10/06/18 07:31 EA [id number]) Manual Assessments Soft Tissue Assessment Soft Tissue Mobility Assessment Tight Paralumbars, QL. PT-OP-G Mobility & Gait Start: 09/22/18 16:27 Freq: Status: Active Protocol: Document 09/22/18 17:22 EA (Rec: 10/06/18 07:31 EA [id number]) OP Gait Assessment Gait Gait Assistance Required: Independent Able to Maintain Weight Bearing Status Yes During Gait Gait Deviations General Gait Pattern Antalgic Lateral Trunk Lean Factors Limiting Gait Function Factors Limiting Gait Function Decreased Activity Tolerance Decreased Strength Pain PT-OP-J Posture/Palpation/Skin Start: 09/22/18 16:27 Freq: Status: Active Protocol: Document 09/22/18 17:25 EA (Rec: 10/07/18 07:29 EA [id number]) Posture Evaluation Position Standing Evaluation View lat/post L-Spine Posture Increased Lordosis Pelvis Posture Anteriorly Tilted Comments Posture Comments Fair posture with increased lumbar lordosis Palpation Assessment Location One Palpation Location Both Paralumbars, QL, SI joint Palpation Findings Soft Tissue Tightness Tenderness Skin Assessment Other Assessments Skin Assessment Comments Bilateral pedal edema pitting edema PT-OP-K Range of Motion Start: 09/22/18 16:27 Freq: Status: Active Protocol: Document 09/22/18 17:25 EA (Rec: 10/07/18 07:29 EA [id number]) Lumbar Spine Range of Motion Lumbar Spine Active Percentage Testing Position Standing Flexion 75 Extension 60 Rotation Left 50 Rotation Right 50 Lateral Flexion Left 30 Lateral Flexion Right 40 ROM Limitations Soft Tissue Tightness Pain PT-OP-L Special Tests Start: 09/22/18 16:27 Freq: Status: Active Protocol: Document 09/22/18 17:05 EA (Rec: 10/07/18 08:10 EA [id number]) Special Tests Lumbar Spine Special Tests Stork Test Test Results - Slump Test Results - Other- 1 Test Results + Debbie's PT-OP-M Strength Start: 09/22/18 16:27 Freq: Status: Active Protocol: Document 09/22/18 17:05 EA (Rec: 10/07/18 08:10 EA [id number]) Hip Strength Hip Manual Muscle Testing Right Flexion (L2) 2+ Poor+ Extension (S1) 3+ Fair+ Abduction 3+ Fair+ Adduction 4 Good External Rotation 3- Fair- Internal Rotation 3- Fair- Knee Strength Knee Manual Muscle Testing Right Flexion (S2) 3+ Fair+ Extension (L3) 3+ Fair+ Ankle/Foot Strength Ankle and Foot Manual Muscle Testing Right Dorsiflexion (L4) 3- Fair- Plantarflexion (S1) 3- Fair- Inversion 3- Fair- Eversion (S1) 3- Fair- PT-OP-Q Treatments Start: 09/22/18 16:27 Freq: Status: Active Protocol: Document 10/22/18 16:00 HH (Rec: 10/22/18 18:45 HH [email or web address]) Therapeutic Exercises Sidelying Exercises SL elbow press to sit Sidelying Exercise Name SL to sit Side right Reps/Minutes 10 Standing Exercises standing trunk ext and flexion Reps/Minutes 10 standing hip hinge Equipment Used red RTB Reps/Minutes 10 Neuro Re-Education Treatment Other Activities seated neural glide Details with B LE extended Reps/Duration 10 PT-OP-R Modalities Start: 09/22/18 16:27 Freq: Status: Active Protocol: Document 10/15/18 09:42 EA (Rec: 10/15/18 09:43 EA [id number]) Electric Stimulation Electric Stimulation Interferential Current (IFC) Body Location Paralumbars; left QL Duration (Minutes) 15 Intensity 14 Combined With Heat/Cold Hot Pack PT-OP-T Assessment and Plan Start: 09/22/18 16:27 Freq: Status: Active Protocol: Document 10/22/18 16:00 HH (Rec: 10/22/18 18:45 [email or web address]) Physical Therapy Assessment Progress Towards Goals Progress Towards Goals Slow Progress due to Activity Tolerance Slow Progress due to Medical Issues Slow Progress due to Noncompliance Slow Progress - Other Progress Comments Pt reports he does not like to exercise and he has never done HEP. Assessment Summary Assessment pt presents to clinic and stated my back pain has been the same 02/18 which get worse during bending movements. And I did not do any exercise since i started therapy. Upon assessment, pt reports his LBP increases during seated flexion and standing flexion who also demonstrates significant thoracic kyphosis along with decreased lumbar flexion and hip flexion. Pt presents difficulty performing pelvic tilt possibly due to neuromuscular inhibition from chronic LBP. Pt is then instructed to perform seated neural glide with active trunk ext and flexion (B LE extended ); standing hip hinge with red resistance band at hip; Resisted trunk flexion and extension. Pt denies LBP after during reassessment with seated flexion and standing flexion. Pt education is given as well to encourage active HEP participation and emphasize the impact of active lifestyle on LBP. Pt cont requires skilled PT to address his significant loss of trunk mobility and insufficient abdominal and trunk extensors strength. Physical Therapy Plan Therapeutic Interventions Therapeutic Interventions Home Exercise Program Neuromuscular Re-education Patient/Caregiver Education Soft Tissue Mobilization Therapeutic Activities Therapeutic Exercises Next Visit Focus/Plan Next Note Type Treatment Note Next Visit Plan Cont trunk stabilization training posterior chain neural glide hip hinge lifting mechanics lumbopelvic movement pattern neuro mary
--- NOTE | 2018-10-27 10:57 | PT.OTN ---
Current Diagnoses Low back pain (10/27/18) Physical Therapy Treatment Note PT-OP-A Visit Information Start: 09/22/18 16:27 Freq: Status: Active Protocol: Document 10/27/18 09:37 EA (Rec: 10/27/18 09:44 EA [id number]) Out-Patient Physical Therapy Visit Information Visit Information Visit Type Treatment Note Visit Start Time 09:00 Visit Stop Time 09:45 Total Visit Minutes 45 Visit Number 4 Number of COLLEGE COACH Visits 0 PT-OP-B Current Condition Start: 09/22/18 16:27 Freq: Status: Active Protocol: Document 09/22/18 17:22 EA (Rec: 10/06/18 07:31 EA [id number]) Current Condition History of Current Condition Onset Date June 2018 History of Current Condition Present condition has been chronic for more than 5 years and excacerbated last June 2018 with no known reason. Patient had RLE surgery while in [place] and denies regain of full RLE strength. 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 [facility] X-ray done: Spinal stenosis dx. Future Testing and Treatments Planned None identified. 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 Patient Reported Progress Same PT-OP-F Manual Assessment Start: 09/22/18 16:27 Freq: Status: Active Protocol: Document 09/22/18 17:22 EA (Rec: 10/06/18 07:31 EA [id number]) Manual Assessments Soft Tissue Assessment Soft Tissue Mobility Assessment Tight Paralumbars, QL. PT-OP-G Mobility & Gait Start: 09/22/18 16:27 Freq: Status: Active Protocol: Document 09/22/18 17:22 EA (Rec: 10/06/18 07:31 EA [id number]) OP Gait Assessment Gait Gait Assistance Required: Independent Able to Maintain Weight Bearing Status Yes During Gait Gait Deviations General Gait Pattern Antalgic Lateral Trunk Lean Factors Limiting Gait Function Factors Limiting Gait Function Decreased Activity Tolerance Decreased Strength Pain PT-OP-J Posture/Palpation/Skin Start: 09/22/18 16:27 Freq: Status: Active Protocol: Document 09/22/18 17:25 EA (Rec: 10/07/18 07:29 EA [id number]) Posture Evaluation Position Standing Evaluation View lat/post L-Spine Posture Increased Lordosis Pelvis Posture Anteriorly Tilted Comments Posture Comments Fair posture with increased lumbar lordosis Palpation Assessment Location One Palpation Location Both Paralumbars, QL, SI joint Palpation Findings Soft Tissue Tightness Tenderness Skin Assessment Other Assessments Skin Assessment Comments Bilateral pedal edema pitting edema PT-OP-K Range of Motion Start: 09/22/18 16:27 Freq: Status: Active Protocol: Document 09/22/18 17:25 EA (Rec: 10/07/18 07:29 EA [id number]) Lumbar Spine Range of Motion Lumbar Spine Active Percentage Testing Position Standing Flexion 75 Extension 60 Rotation Left 50 Rotation Right 50 Lateral Flexion Left 30 Lateral Flexion Right 40 ROM Limitations Soft Tissue Tightness Pain PT-OP-L Special Tests Start: 09/22/18 16:27 Freq: Status: Active Protocol: Document 09/22/18 17:05 EA (Rec: 10/07/18 08:10 EA [id number]) Special Tests Lumbar Spine Special Tests Stork Test Test Results - Slump Test Results - Other- 1 Test Results + Debbie's PT-OP-M Strength Start: 09/22/18 16:27 Freq: Status: Active Protocol: Document 09/22/18 17:05 EA (Rec: 10/07/18 08:10 EA [id number]) Hip Strength Hip Manual Muscle Testing Right Flexion (L2) 2+ Poor+ Extension (S1) 3+ Fair+ Abduction 3+ Fair+ Adduction 4 Good External Rotation 3- Fair- Internal Rotation 3- Fair- Knee Strength Knee Manual Muscle Testing Right Flexion (S2) 3+ Fair+ Extension (L3) 3+ Fair+ Ankle/Foot Strength Ankle and Foot Manual Muscle Testing Right Dorsiflexion (L4) 3- Fair- Plantarflexion (S1) 3- Fair- Inversion 3- Fair- Eversion (S1) 3- Fair- PT-OP-Q Treatments Start: 09/22/18 16:27 Freq: Status: Active Protocol: Document 10/27/18 09:37 EA (Rec: 10/27/18 09:44 EA [id number]) Cardio Equipment Recumbent Stepper (Sci-Fit) Duration (Minutes) 6 Resistance 1.5 Seat Position 12 Manual Therapy Treatment Soft Tissue Mobilization 1 Body Location Paralumbars/ Left and right QL Mobilization Type Myofascial Release Rolling Sustained Pressure Trigger Point Release Body Position Sitting Comments Leaned on table. decrased depth with and intensity with sustained pressure and rollinmg as patient did not tolerated deep tissue. PT-OP-R Modalities Start: 09/22/18 16:27 Freq: Status: Active Protocol: Document 10/27/18 09:37 EA (Rec: 10/27/18 09:44 EA [id number]) Electric Stimulation Electric Stimulation Interferential Current (IFC) Body Location Paralumbars; left and right QL Duration (Minutes) 15 Intensity 14 Combined With Heat/Cold Hot Pack PT-OP-T Assessment and Plan Start: 09/22/18 16:27 Freq: Status: Active Protocol: Document 10/27/18 09:37 EA (Rec: 10/27/18 09:44 EA [id number]) Physical Therapy Assessment Assessment Summary Assessment Pt unable to tolerated deep tissue massage; deep effluerage to helps tigthness and tenderness. Continue with the current plan. Physical Therapy Plan Next Visit Focus/Plan Next Note Type Treatment Note Next Visit Plan Cont with current treatment: modalities to helps lessen pain and stiffness.
--- NOTE | 2018-11-10 11:09 | PT.OTN ---
Current Diagnoses Low back pain (11/10/18) Physical Therapy Treatment Note PT-OP-A Visit Information Start: 09/22/18 16:27 Freq: Status: Active Protocol: Document 11/10/18 09:52 EA (Rec: 11/10/18 10:27 EA [id number]) Out-Patient Physical Therapy Visit Information Visit Information Visit Type Treatment Note Visit Start Time 09:00 Visit Stop Time 09:45 Total Visit Minutes 45 Visit Number 5 Number of HISTORY CARD CLERK Visits 0 PT-OP-B Current Condition Start: 09/22/18 16:27 Freq: Status: Active Protocol: Document 09/22/18 17:22 EA (Rec: 10/06/18 07:31 EA [id number]) Current Condition History of Current Condition Onset Date June 2018 History of Current Condition Present condition has been chronic for more than 5 years and excacerbated last June 2018 with no known reason. Patient had RLE surgery while in [place] and denies regain of full RLE strength. 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 [facility] X-ray done: Spinal stenosis dx. Future Testing and Treatments Planned None identified. 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 Current Functional Impairments (Reported) Functional Limitations- ADL's Indep with difficulty in all activities with lifting and bending Functional Limitations- Mobility/Gait Indep with limited distance Functional Limitations- Work/School Limited at work in the machine shop PT-OP-C Subjective Start: 09/22/18 16:27 Freq: Status: Active Protocol: Document 11/10/18 09:52 EA (Rec: 11/10/18 10:27 EA [id number]) OP-PT Subjective Patient Comments Patient Comments Pt reports low back pain increased after last session; states 2 days after it back the same pain level, Pt reports that his bacl PT-OP-F Manual Assessment Start: 09/22/18 16:27 Freq: Status: Active Protocol: Document 09/22/18 17:22 EA (Rec: 10/06/18 07:31 EA [id number]) Manual Assessments Soft Tissue Assessment Soft Tissue Mobility Assessment Tight Paralumbars, QL. PT-OP-G Mobility & Gait Start: 09/22/18 16:27 Freq: Status: Active Protocol: Document 09/22/18 17:22 EA (Rec: 10/06/18 07:31 EA [id number]) OP Gait Assessment Gait Gait Assistance Required: Independent Able to Maintain Weight Bearing Status Yes During Gait Gait Deviations General Gait Pattern Antalgic Lateral Trunk Lean Factors Limiting Gait Function Factors Limiting Gait Function Decreased Activity Tolerance Decreased Strength Pain PT-OP-J Posture/Palpation/Skin Start: 09/22/18 16:27 Freq: Status: Active Protocol: Document 09/22/18 17:25 EA (Rec: 10/07/18 07:29 EA [id number]) Posture Evaluation Position Standing Evaluation View lat/post L-Spine Posture Increased Lordosis Pelvis Posture Anteriorly Tilted Comments Posture Comments Fair posture with increased lumbar lordosis Palpation Assessment Location One Palpation Location Both Paralumbars, QL, SI joint Palpation Findings Soft Tissue Tightness Tenderness Skin Assessment Other Assessments Skin Assessment Comments Bilateral pedal edema pitting edema PT-OP-K Range of Motion Start: 09/22/18 16:27 Freq: Status: Active Protocol: Document 09/22/18 17:25 EA (Rec: 10/07/18 07:29 EA [id number]) Lumbar Spine Range of Motion Lumbar Spine Active Percentage Testing Position Standing Flexion 75 Extension 60 Rotation Left 50 Rotation Right 50 Lateral Flexion Left 30 Lateral Flexion Right 40 ROM Limitations Soft Tissue Tightness Pain PT-OP-L Special Tests Start: 09/22/18 16:27 Freq: Status: Active Protocol: Document 09/22/18 17:05 EA (Rec: 10/07/18 08:10 EA [id number]) Special Tests Lumbar Spine Special Tests Stork Test Test Results - Slump Test Results - Other- 1 Test Results + Debbie's PT-OP-M Strength Start: 09/22/18 16:27 Freq: Status: Active Protocol: Document 09/22/18 17:05 EA (Rec: 10/07/18 08:10 EA [id number]) Hip Strength Hip Manual Muscle Testing Right Flexion (L2) 2+ Poor+ Extension (S1) 3+ Fair+ Abduction 3+ Fair+ Adduction 4 Good External Rotation 3- Fair- Internal Rotation 3- Fair- Knee Strength Knee Manual Muscle Testing Right Flexion (S2) 3+ Fair+ Extension (L3) 3+ Fair+ Ankle/Foot Strength Ankle and Foot Manual Muscle Testing Right Dorsiflexion (L4) 3- Fair- Plantarflexion (S1) 3- Fair- Inversion 3- Fair- Eversion (S1) 3- Fair- PT-OP-Q Treatments Start: 09/22/18 16:27 Freq: Status: Active Protocol: Document 11/10/18 09:52 EA (Rec: 11/10/18 10:27 EA [id number]) Cardio Equipment Recumbent Stepper (Sci-Fit) Duration (Minutes) 6 Resistance 1.5 Seat Position 12 Therapeutic Exercises Supine Exercises 5 Supine Exercise Name Lumbars rotation/lower Reps/Minutes x 15 reps x 2 sets 4 Supine Exercise Name PPT head lift Reps/Minutes x 5SH x 5 reps Comments avoid valsalva 3 Supine Exercise Name PPT Reps/Minutes x 5SH x 10 reps Comments avoid valsalva 2 Supine Exercise Name SKTC (Gentle) Side bilateral Reps/Minutes x 15 SH x 2 reps 1 Supine Exercise Name Passive hamstringand piriformis gentle stretch Side bilateral Reps/Minutes x 15 SH x 2 reps Manual Therapy Treatment Soft Tissue Mobilization 1 Body Location Paralumbars/ Left and right QL Mobilization Type Myofascial Release Rolling Sustained Pressure Trigger Point Release Body Position Sitting Comments Leaned on table. decrased depth with and intensity with sustained pressure and rollinmg as patient did not tolerated deep tissue. PT-OP-R Modalities Start: 09/22/18 16:27 Freq: Status: Active Protocol: Document 11/10/18 09:52 EA (Rec: 11/10/18 10:27 EA [id number]) Electric Stimulation Electric Stimulation Interferential Current (IFC) Body Location Paralumbars; left and right QL Duration (Minutes) 15 Intensity 14 Combined With Heat/Cold Hot Pack Comments sitting position PT-OP-T Assessment and Plan Start: 09/22/18 16:27 Freq: Status: Active Protocol: Document 11/10/18 09:52 EA (Rec: 11/10/18 10:27 EA [id number]) Physical Therapy Assessment Assessment Summary Assessment Pt tolerated treatment with minor discomfort during manual PT. Pt recommended to use heat at home. Physical Therapy Plan Next Visit Focus/Plan Next Note Type Treatment Note Next Visit Plan Cont with current treatment: modalities to helps lessen pain and stiffness.
--- NOTE | 2018-11-13 12:11 | PT.OTN ---
Current Diagnoses Low back pain (11/13/18) Physical Therapy Treatment Note PT-OP-A Visit Information Start: 09/22/18 16:27 Freq: Status: Active Protocol: Document 11/13/18 10:25 EA (Rec: 11/13/18 10:32 EA [id number]) Out-Patient Physical Therapy Visit Information Visit Information Visit Type Treatment Note Visit Start Time 09:45 Visit Stop Time 10:30 Total Visit Minutes 45 Visit Number 6 Number of STEAM TRAP WORKER Visits 0 PT-OP-B Current Condition Start: 09/22/18 16:27 Freq: Status: Active Protocol: Document 09/22/18 17:22 EA (Rec: 10/06/18 07:31 EA [id number]) Current Condition History of Current Condition Onset Date June 2018 History of Current Condition Present condition has been chronic for more than 5 years and excacerbated last June 2018 with no known reason. Patient had RLE surgery while in [place] and denies regain of full RLE strength. 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 [facility] X-ray done: Spinal stenosis dx. Future Testing and Treatments Planned None identified. 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 Patient Reported Progress Same PT-OP-F Manual Assessment Start: 09/22/18 16:27 Freq: Status: Active Protocol: Document 09/22/18 17:22 EA (Rec: 10/06/18 07:31 EA [id number]) Manual Assessments Soft Tissue Assessment Soft Tissue Mobility Assessment Tight Paralumbars, QL. PT-OP-G Mobility & Gait Start: 09/22/18 16:27 Freq: Status: Active Protocol: Document 09/22/18 17:22 EA (Rec: 10/06/18 07:31 EA [id number]) OP Gait Assessment Gait Gait Assistance Required: Independent Able to Maintain Weight Bearing Status Yes During Gait Gait Deviations General Gait Pattern Antalgic Lateral Trunk Lean Factors Limiting Gait Function Factors Limiting Gait Function Decreased Activity Tolerance Decreased Strength Pain PT-OP-J Posture/Palpation/Skin Start: 09/22/18 16:27 Freq: Status: Active Protocol: Document 09/22/18 17:25 EA (Rec: 10/07/18 07:29 EA [id number]) Posture Evaluation Position Standing Evaluation View lat/post L-Spine Posture Increased Lordosis Pelvis Posture Anteriorly Tilted Comments Posture Comments Fair posture with increased lumbar lordosis Palpation Assessment Location One Palpation Location Both Paralumbars, QL, SI joint Palpation Findings Soft Tissue Tightness Tenderness Skin Assessment Other Assessments Skin Assessment Comments Bilateral pedal edema pitting edema PT-OP-K Range of Motion Start: 09/22/18 16:27 Freq: Status: Active Protocol: Document 09/22/18 17:25 EA (Rec: 10/07/18 07:29 EA [id number]) Lumbar Spine Range of Motion Lumbar Spine Active Percentage Testing Position Standing Flexion 75 Extension 60 Rotation Left 50 Rotation Right 50 Lateral Flexion Left 30 Lateral Flexion Right 40 ROM Limitations Soft Tissue Tightness Pain PT-OP-L Special Tests Start: 09/22/18 16:27 Freq: Status: Active Protocol: Document 09/22/18 17:05 EA (Rec: 10/07/18 08:10 EA [id number]) Special Tests Lumbar Spine Special Tests Stork Test Test Results - Slump Test Results - Other- 1 Test Results + Debbie's PT-OP-M Strength Start: 09/22/18 16:27 Freq: Status: Active Protocol: Document 09/22/18 17:05 EA (Rec: 10/07/18 08:10 EA [id number]) Hip Strength Hip Manual Muscle Testing Right Flexion (L2) 2+ Poor+ Extension (S1) 3+ Fair+ Abduction 3+ Fair+ Adduction 4 Good External Rotation 3- Fair- Internal Rotation 3- Fair- Knee Strength Knee Manual Muscle Testing Right Flexion (S2) 3+ Fair+ Extension (L3) 3+ Fair+ Ankle/Foot Strength Ankle and Foot Manual Muscle Testing Right Dorsiflexion (L4) 3- Fair- Plantarflexion (S1) 3- Fair- Inversion 3- Fair- Eversion (S1) 3- Fair- PT-OP-Q Treatments Start: 09/22/18 16:27 Freq: Status: Active Protocol: Document 11/13/18 10:25 EA (Rec: 11/13/18 10:32 EA [id number]) Cardio Equipment Recumbent Stepper (Sci-Fit) Duration (Minutes) 7 Resistance 1.5 Seat Position 12 Therapeutic Exercises Supine Exercises 5 Supine Exercise Name Lumbars rotation/lower Reps/Minutes x 15 reps x 2 sets 3 Supine Exercise Name PPT Reps/Minutes x 5SH x 10 reps Comments avoid valsalva Manual Therapy Treatment Soft Tissue Mobilization 1 Body Location Paralumbars/ Left and right QL Mobilization Type Myofascial Release Rolling Sustained Pressure Trigger Point Release Body Position Sitting Comments Leaned on table. decrased depth with and intensity with sustained pressure and rollinmg as patient did not tolerated deep tissue. PT-OP-R Modalities Start: 09/22/18 16:27 Freq: Status: Active Protocol: Document 11/13/18 10:25 EA (Rec: 11/13/18 10:32 EA [id number]) Electric Stimulation Electric Stimulation Interferential Current (IFC) Body Location Paralumbars; left and right QL Duration (Minutes) 15 Intensity 16 Combined With Heat/Cold Hot Pack Comments sitting position PT-OP-T Assessment and Plan Start: 09/22/18 16:27 Freq: Status: Active Protocol: Document 11/13/18 10:25 EA (Rec: 11/13/18 10:32 EA [id number]) Physical Therapy Assessment Assessment Summary Assessment Patient unable to tolerate sitted lumbar stretch. Patient is not showing improvement at this time. Educated patient with proper lifting mechanics. Physical Therapy Plan Next Visit Focus/Plan Next Note Type Treatment Note Next Visit Plan Cont with current treatment: modalities to helps lessen pain and stiffness.
--- NOTE | 2018-11-17 11:13 | PT.OTN ---
Current Diagnoses Low back pain (11/17/18) Physical Therapy Treatment Note PT-OP-A Visit Information Start: 09/22/18 16:27 Freq: Status: Active Protocol: Document 11/17/18 10:20 EA (Rec: 11/17/18 10:27 EA [id number]) Out-Patient Physical Therapy Visit Information Visit Information Visit Type Treatment Note Visit Start Time 09:45 Visit Stop Time 10:30 Total Visit Minutes 45 Visit Number 7 Number of ROUTER SETTER Visits 0 PT-OP-B Current Condition Start: 09/22/18 16:27 Freq: Status: Active Protocol: Document 09/22/18 17:22 EA (Rec: 10/06/18 07:31 EA [id number]) Current Condition History of Current Condition Onset Date June 2018 History of Current Condition Present condition has been chronic for more than 5 years and excacerbated last June 2018 with no known reason. Patient had RLE surgery while in [place] and denies regain of full RLE strength. 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 [facility] X-ray done: Spinal stenosis dx. Future Testing and Treatments Planned None identified. 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 Pt also quite prustrated with medical insurance authorization; states he has been calling them and approved; however did not call his doctor yet. Patient Reported Progress Improving PT-OP-F Manual Assessment Start: 09/22/18 16:27 Freq: Status: Active Protocol: Document 09/22/18 17:22 EA (Rec: 10/06/18 07:31 EA [id number]) Manual Assessments Soft Tissue Assessment Soft Tissue Mobility Assessment Tight Paralumbars, QL. PT-OP-G Mobility & Gait Start: 09/22/18 16:27 Freq: Status: Active Protocol: Document 09/22/18 17:22 EA (Rec: 10/06/18 07:31 EA [id number]) OP Gait Assessment Gait Gait Assistance Required: Independent Able to Maintain Weight Bearing Status Yes During Gait Gait Deviations General Gait Pattern Antalgic Lateral Trunk Lean Factors Limiting Gait Function Factors Limiting Gait Function Decreased Activity Tolerance Decreased Strength Pain PT-OP-J Posture/Palpation/Skin Start: 09/22/18 16:27 Freq: Status: Active Protocol: Document 09/22/18 17:25 EA (Rec: 10/07/18 07:29 EA [id number]) Posture Evaluation Position Standing Evaluation View lat/post L-Spine Posture Increased Lordosis Pelvis Posture Anteriorly Tilted Comments Posture Comments Fair posture with increased lumbar lordosis Palpation Assessment Location One Palpation Location Both Paralumbars, QL, SI joint Palpation Findings Soft Tissue Tightness Tenderness Skin Assessment Other Assessments Skin Assessment Comments Bilateral pedal edema pitting edema PT-OP-K Range of Motion Start: 09/22/18 16:27 Freq: Status: Active Protocol: Document 09/22/18 17:25 EA (Rec: 10/07/18 07:29 EA [id number]) Lumbar Spine Range of Motion Lumbar Spine Active Percentage Testing Position Standing Flexion 75 Extension 60 Rotation Left 50 Rotation Right 50 Lateral Flexion Left 30 Lateral Flexion Right 40 ROM Limitations Soft Tissue Tightness Pain PT-OP-L Special Tests Start: 09/22/18 16:27 Freq: Status: Active Protocol: Document 09/22/18 17:05 EA (Rec: 10/07/18 08:10 EA [id number]) Special Tests Lumbar Spine Special Tests Stork Test Test Results - Slump Test Results - Other- 1 Test Results + Debbie's PT-OP-M Strength Start: 09/22/18 16:27 Freq: Status: Active Protocol: Document 09/22/18 17:05 EA (Rec: 10/07/18 08:10 EA [id number]) Hip Strength Hip Manual Muscle Testing Right Flexion (L2) 2+ Poor+ Extension (S1) 3+ Fair+ Abduction 3+ Fair+ Adduction 4 Good External Rotation 3- Fair- Internal Rotation 3- Fair- Knee Strength Knee Manual Muscle Testing Right Flexion (S2) 3+ Fair+ Extension (L3) 3+ Fair+ Ankle/Foot Strength Ankle and Foot Manual Muscle Testing Right Dorsiflexion (L4) 3- Fair- Plantarflexion (S1) 3- Fair- Inversion 3- Fair- Eversion (S1) 3- Fair- PT-OP-Q Treatments Start: 09/22/18 16:27 Freq: Status: Active Protocol: Document 11/17/18 10:20 EA (Rec: 11/17/18 10:27 EA [id number]) Cardio Equipment Recumbent Stepper (Sci-Fit) Duration (Minutes) 7 Resistance 1.5 Seat Position 12 Therapeutic Exercises Supine Exercises 5 Supine Exercise Name Lumbars rotation/lower Reps/Minutes x 15 reps x 2 sets 4 Supine Exercise Name PPT head lift Reps/Minutes x 5SH x 5 reps Comments avoid valsalva 3 Supine Exercise Name PPT Reps/Minutes x 5SH x 10 reps Comments avoid valsalva 2 Supine Exercise Name SKTC (Gentle) Side bilateral Reps/Minutes x 15 SH x 2 reps 1 Supine Exercise Name Passive hamstringand piriformis gentle stretch Side bilateral Reps/Minutes x 15 SH x 2 reps Sidelying Exercises SL elbow press to sit Sidelying Exercise Name SL to sit Side right Reps/Minutes 10 Sitting Exercises 1 Sitting Exercise Name Lumbars ext stretch (Leaning fwd Side bilateral Reps/Minutes x 30SH x 2 reps Comments assess breathing Standing Exercises standing trunk ext and flexion Reps/Minutes 10 standing hip hinge Equipment Used red RTB Reps/Minutes 10 Manual Therapy Treatment Soft Tissue Mobilization 1 Body Location Paralumbars/ Left and right QL Mobilization Type Myofascial Release Rolling Sustained Pressure Trigger Point Release Body Position Sitting Comments Leaned on table. decrased depth with and intensity with sustained pressure and rollinmg as patient did not tolerated deep tissue. PT-OP-R Modalities Start: 09/22/18 16:27 Freq: Status: Active Protocol: Document 11/17/18 10:20 EA (Rec: 11/17/18 10:27 EA [id number]) Electric Stimulation Electric Stimulation Interferential Current (IFC) Body Location Paralumbars; left and right QL Duration (Minutes) 15 Intensity 16 Combined With Heat/Cold Hot Pack Comments sitting position PT-OP-T Assessment and Plan Start: 09/22/18 16:27 Freq: Status: Active Protocol: Document 11/17/18 10:20 EA (Rec: 11/17/18 10:27 EA [id number]) Physical Therapy Assessment Assessment Summary Assessment Pt tolerated exercises with no discomfort noted; continue to show weakness to abdominal muscle and requires assist from supine to sit. Tenderness to lower back is quite less at this time. Patient progressing well. Physical Therapy Plan Next Visit Focus/Plan Next Note Type Treatment Note Next Visit Plan Cont with current treatment: modalities to helps lessen pain and stiffness.
--- NOTE | 2018-12-29 16:29 | PT.OTRE ---
Current Diagnoses Low back pain (12/29/18) Provider Visit Care Team Role Provider Type Robin Reyes MD Attending Provider Non-Staff Primary Care Provider Specialty: Emergency Medicine Address: [address] [place] [address], [place], [address] Email: Physical Therapy Re-Evaluation PT-OP-A Visit Information Start: 09/22/18 16:27 Freq: Status: Active Protocol: Document 12/29/18 12:44 EA (Rec: 12/29/18 12:53 EA [id number]) Out-Patient Physical Therapy Visit Information Visit Information Visit Type Treatment Note Visit Start Time 09:45 Visit Stop Time 10:30 Total Visit Minutes 45 Visit Number 8 Number of INFORMATION RESOURCE CONSULTANT Visits 0 PT-OP-B Current Condition Start: 09/22/18 16:27 Freq: Status: Active Protocol: Document 09/22/18 17:22 EA (Rec: 10/06/18 07:31 EA [id number]) Current Condition History of Current Condition Onset Date June 2018 History of Current Condition Present condition has been chronic for more than 5 years and excacerbated last June 2018 with no known reason. Patient had RLE surgery while in [place] and denies regain of full RLE strength. 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 [facility] X-ray done: Spinal stenosis dx. Future Testing and Treatments Planned None identified. 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 Current Functional Impairments (Reported) Functional Limitations- ADL's Indep with difficulty in all activities with lifting and bending Functional Limitations- Mobility/Gait Indep with limited distance Functional Limitations- Work/School Limited at work in the machine shop PT-OP-C Subjective Start: 09/22/18 16:27 Freq: Status: Active Protocol: Document 12/29/18 12:44 EA (Rec: 12/29/18 12:53 EA [id number]) OP-PT Subjective Patient Comments Patient Comments Patient reports low back pain much better at this time; states stiff with increased symptoms mostly early in the morning. Pt mentioned kayley he is complaint with HEP. Patient Reported Progress Improving Patient Questionnaires Oswestry Low Back Index Oswestry Score 18/50 Oswestry Impairment 20 to 39% Impaired (Score 20- 39) PT-OP-F Manual Assessment Start: 09/22/18 16:27 Freq: Status: Active Protocol: Document 12/29/18 12:44 EA (Rec: 12/29/18 12:53 EA [id number]) Manual Assessments Soft Tissue Assessment Soft Tissue Mobility Assessment Tight Paralumbars, QL. PT-OP-G Mobility & Gait Start: 09/22/18 16:27 Freq: Status: Active Protocol: Document 09/22/18 17:22 EA (Rec: 10/06/18 07:31 EA [id number]) OP Gait Assessment Gait Gait Assistance Required: Independent Able to Maintain Weight Bearing Status Yes During Gait Gait Deviations General Gait Pattern Antalgic Lateral Trunk Lean Factors Limiting Gait Function Factors Limiting Gait Function Decreased Activity Tolerance Decreased Strength Pain PT-OP-J Posture/Palpation/Skin Start: 09/22/18 16:27 Freq: Status: Active Protocol: Document 12/29/18 12:44 EA (Rec: 12/29/18 12:53 EA [id number]) Posture Evaluation Position Standing Evaluation View lat/post L-Spine Posture Increased Lordosis Pelvis Posture Anteriorly Tilted Palpation Assessment Location One Palpation Location Both QL > paralumbars Palpation Findings Soft Tissue Tightness Tenderness PT-OP-K Range of Motion Start: 09/22/18 16:27 Freq: Status: Active Protocol: Document 12/29/18 12:44 EA (Rec: 12/29/18 12:53 EA [id number]) Lumbar Spine Range of Motion Lumbar Spine Active Percentage Testing Position Standing Flexion 80 Extension 70 Rotation Left 65 Rotation Right 65 Lateral Flexion Left 50 Lateral Flexion Right 40 ROM Limitations Soft Tissue Tightness Pain PT-OP-L Special Tests Start: 09/22/18 16:27 Freq: Status: Active Protocol: Document 09/22/18 17:05 EA (Rec: 10/07/18 08:10 EA [id number]) Special Tests Lumbar Spine Special Tests Stork Test Test Results - Slump Test Results - Other- 1 Test Results + Debbie's PT-OP-M Strength Start: 09/22/18 16:27 Freq: Status: Active Protocol: Document 09/22/18 17:05 EA (Rec: 10/07/18 08:10 EA [id number]) Hip Strength Hip Manual Muscle Testing Right Flexion (L2) 2+ Poor+ Extension (S1) 3+ Fair+ Abduction 3+ Fair+ Adduction 4 Good External Rotation 3- Fair- Internal Rotation 3- Fair- Knee Strength Knee Manual Muscle Testing Right Flexion (S2) 3+ Fair+ Extension (L3) 3+ Fair+ Ankle/Foot Strength Ankle and Foot Manual Muscle Testing Right Dorsiflexion (L4) 3- Fair- Plantarflexion (S1) 3- Fair- Inversion 3- Fair- Eversion (S1) 3- Fair- PT-OP-Q Treatments Start: 09/22/18 16:27 Freq: Status: Active Protocol: Document 12/29/18 12:44 EA (Rec: 12/29/18 12:53 EA [id number]) Cardio Equipment Recumbent Stepper (Sci-Fit) Duration (Minutes) 7 Resistance 1.5 Seat Position 12 Therapeutic Exercises Supine Exercises 5 Supine Exercise Name Lumbars rotation/lower Reps/Minutes x 15 reps x 2 sets 4 Supine Exercise Name PPT head lift Reps/Minutes x 5SH x 5 reps Comments avoid valsalva 3 Supine Exercise Name PPT Reps/Minutes x 5SH x 10 reps Comments avoid valsalva 2 Supine Exercise Name SKTC (Gentle) Side bilateral Reps/Minutes x 15 SH x 2 reps 1 Supine Exercise Name Passive hamstringand piriformis gentle stretch Side bilateral Reps/Minutes x 15 SH x 2 reps Sidelying Exercises SL elbow press to sit Sidelying Exercise Name SL to sit Side right Reps/Minutes 10 Sitting Exercises 1 Sitting Exercise Name Lumbars ext stretch (Leaning fwd Side bilateral Reps/Minutes x 30SH x 2 reps Comments assess breathing Standing Exercises standing trunk ext and flexion Reps/Minutes 10 standing hip hinge Equipment Used red RTB Reps/Minutes 10 Manual Therapy Treatment Soft Tissue Mobilization 1 Body Location Paralumbars/ Left and right QL Mobilization Type Myofascial Release Rolling Sustained Pressure Trigger Point Release Body Position Sitting Comments Leaned on table. decrased depth with and intensity with sustained pressure and rollinmg as patient did not tolerated deep tissue. PT-OP-R Modalities Start: 09/22/18 16:27 Freq: Status: Active Protocol: Document 12/29/18 12:44 EA (Rec: 12/29/18 12:53 EA [id number]) Electric Stimulation Electric Stimulation Interferential Current (IFC) Body Location Paralumbars; left and right QL Duration (Minutes) 15 Intensity 16 Combined With Heat/Cold Hot Pack Comments sitting position PT-OP-T Assessment and Plan Start: 09/22/18 16:27 Freq: Status: Active Protocol: Document 12/29/18 12:44 EA (Rec: 12/29/18 12:53 EA [id number]) Physical Therapy Assessment Rehab Potential Rehabilitation Potential Fair Impairments Impairments Activity Tolerance Gait Pain Posture ROM Soft Tissue Mobility Strength Other Concerns Fall Risk Yes Goals Five Impairment No HEP in place Care Home Goal (LTG) Patient will comply to HEP with good understanding to safety. LTG Duration 4 wks Four Impairment Impaired lifting mechanics Care Home Goal (LTG) Patient will perform good lifting mechanics to decrease condition worsening. LTG Duration 4 wks Three Impairment Impaired walking tolerance Java Portal Developer Goal (LTG) Patient will ambulate more than 10 mins with no increase in symptoms LTG Duration 4 wks Two Impairment Impaired standing tolerance Java Portal Developer Goal (LTG) Patient will stand more than 10 mins with no increase in symptoms LTG Duration 4 wks One Impairment Oswestry score of 20/50 Java Portal Developer Goal (LTG) Patient will have Oswetry low back pain score less than 12/ 50 LTG Duration 4 wks Progress Towards Goals Progress Towards Goals Slow Progress due to Activity Tolerance Slow Progress due to Attendance Issues Assessment Summary Assessment Patient exhibits improved functional mobility and exercises tolerance in the clinic. Patient continued to work on his shop with improved body mechanics and has been consistent with HEP. I have discussed to patient the benefit of further LE's strengthening to prevent low back pain recurrence and other orthopedic complications. In my opinion, patient will continue to benefit with skilled PT. Physical Therapy Plan Frequency and Duration Frequency of Treatment 2x/Week Duration of Treatment 6 wks Plan of Care Start Date 12/29/18 Plan of Care End Date 02/09/19 Therapeutic Interventions Therapeutic Interventions Gait Training Home Exercise Program Neuromuscular Re-education Patient/Caregiver Education Soft Tissue Mobilization Therapeutic Activities Therapeutic Exercises Modalities Cold Pack/Ice Massage Electric Stimulation Hot Packs Next Visit Focus/Plan Next Note Type Treatment Note Next Visit Plan Begin standing exercises
--- NOTE | 2018-12-29 16:29 | PT.OPPOC ---
Current Diagnoses Low back pain (12/29/18) Provider Visit Care Team Role Provider Type Robin Reyes MD Attending Provider Non-Staff Primary Care Provider Specialty: Emergency Medicine Address: [address] [place] [address], [place], [address] Email: Plan Of Care PT-OP-T Assessment and Plan Start: 09/22/18 16:27 Freq: Status: Active Protocol: Document 12/29/18 12:44 EA (Rec: 12/29/18 12:53 EA [id number]) Physical Therapy Assessment Rehab Potential Rehabilitation Potential Fair Impairments Impairments Activity Tolerance Gait Pain Posture ROM Soft Tissue Mobility Strength Other Concerns Fall Risk Yes Goals Five Impairment No HEP in place [facility] Goal (LTG) Patient will comply to HEP with good understanding to safety. LTG Duration 4 wks Four Impairment Impaired lifting mechanics [facility] Goal (LTG) Patient will perform good lifting mechanics to decrease condition worsening. LTG Duration 4 wks Three Impairment Impaired walking tolerance [facility] Goal (LTG) Patient will ambulate more than 10 mins with no increase in symptoms LTG Duration 4 wks Two Impairment Impaired standing tolerance Medical Director Occupational Health Goal (LTG) Patient will stand more than 10 mins with no increase in symptoms LTG Duration 4 wks One Impairment Oswestry score of 20/50 Medical Director Occupational Health Goal (LTG) Patient will have Oswetry low back pain score less than 12/ 50 LTG Duration 4 wks Progress Towards Goals Progress Towards Goals Slow Progress due to Activity Tolerance Slow Progress due to Attendance Issues Assessment Summary Assessment Patient exhibits improved functional mobility and exercises tolerance in the clinic. Patient continued to work on his shop with improved body mechanics and has been consistent with HEP. I have discussed to patient the benefit of further LE's strengthening to prevent low back pain recurrence and other orthopedic complications. In my opinion, patient will continue to benefit with skilled PT. Physical Therapy Plan Frequency and Duration Frequency of Treatment 2x/Week Duration of Treatment 6 wks Plan of Care Start Date 12/29/18 Plan of Care End Date 02/09/19 Therapeutic Interventions Therapeutic Interventions Gait Training Home Exercise Program Neuromuscular Re-education Patient/Caregiver Education Soft Tissue Mobilization Therapeutic Activities Therapeutic Exercises Modalities Cold Pack/Ice Massage Electric Stimulation Hot Packs Next Visit Focus/Plan Next Note Type Treatment Note Next Visit Plan Begin standing exercises Plan of Care Dates Plan of Care Start Date 12/29/18 Plan of Care End Date 02/09/19 Please Sign and Return: I have reviewed this Plan of Care and certify that the skilled therapy services above are required to meet the patient?s needs. Physician Signature Date Printed Name and Credentials Clinical Instructor Signature Printed Name and Credentials
--- NOTE | 2018-12-31 12:12 | PT.OTN ---
Current Diagnoses Low back pain (12/31/18) Physical Therapy Treatment Note PT-OP-A Visit Information Start: 09/22/18 16:27 Freq: Status: Active Protocol: Document 12/31/18 11:14 EA (Rec: 12/31/18 11:17 EA [id number]) Out-Patient Physical Therapy Visit Information Visit Information Visit Type Treatment Note Visit Note patient is late Visit Start Time 10:45 Visit Stop Time 11:25 Total Visit Minutes 30 Visit Number 9 Number of OPERATING COST CLERK Visits 0 PT-OP-B Current Condition Start: 09/22/18 16:27 Freq: Status: Active Protocol: Document 09/22/18 17:22 EA (Rec: 10/06/18 07:31 EA [id number]) Current Condition History of Current Condition Onset Date June 2018 History of Current Condition Present condition has been chronic for more than 5 years and excacerbated last June 2018 with no known reason. Patient had RLE surgery while in [place] and denies regain of full RLE strength. 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 [facility] X-ray done: Spinal stenosis dx. Future Testing and Treatments Planned None identified. 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 PT-OP-F Manual Assessment Start: 09/22/18 16:27 Freq: Status: Active Protocol: Document 12/29/18 12:44 EA (Rec: 12/29/18 12:53 EA [id number]) Manual Assessments Soft Tissue Assessment Soft Tissue Mobility Assessment Tight Paralumbars, QL. PT-OP-G Mobility & Gait Start: 09/22/18 16:27 Freq: Status: Active Protocol: Document 09/22/18 17:22 EA (Rec: 10/06/18 07:31 EA [id number]) OP Gait Assessment Gait Gait Assistance Required: Independent Able to Maintain Weight Bearing Status Yes During Gait Gait Deviations General Gait Pattern Antalgic Lateral Trunk Lean Factors Limiting Gait Function Factors Limiting Gait Function Decreased Activity Tolerance Decreased Strength Pain PT-OP-J Posture/Palpation/Skin Start: 09/22/18 16:27 Freq: Status: Active Protocol: Document 12/29/18 12:44 EA (Rec: 12/29/18 12:53 EA [id number]) Posture Evaluation Position Standing Evaluation View lat/post L-Spine Posture Increased Lordosis Pelvis Posture Anteriorly Tilted Palpation Assessment Location One Palpation Location Both QL > paralumbars Palpation Findings Soft Tissue Tightness Tenderness PT-OP-K Range of Motion Start: 09/22/18 16:27 Freq: Status: Active Protocol: Document 12/29/18 12:44 EA (Rec: 12/29/18 12:53 EA [id number]) Lumbar Spine Range of Motion Lumbar Spine Active Percentage Testing Position Standing Flexion 80 Extension 70 Rotation Left 65 Rotation Right 65 Lateral Flexion Left 50 Lateral Flexion Right 40 ROM Limitations Soft Tissue Tightness Pain PT-OP-L Special Tests Start: 09/22/18 16:27 Freq: Status: Active Protocol: Document 09/22/18 17:05 EA (Rec: 10/07/18 08:10 EA [id number]) Special Tests Lumbar Spine Special Tests Stork Test Test Results - Slump Test Results - Other- 1 Test Results + Dashalen's PT-OP-M Strength Start: 09/22/18 16:27 Freq: Status: Active Protocol: Document 09/22/18 17:05 EA (Rec: 10/07/18 08:10 EA [id number]) Hip Strength Hip Manual Muscle Testing Right Flexion (L2) 2+ Poor+ Extension (S1) 3+ Fair+ Abduction 3+ Fair+ Adduction 4 Good External Rotation 3- Fair- Internal Rotation 3- Fair- Knee Strength Knee Manual Muscle Testing Right Flexion (S2) 3+ Fair+ Extension (L3) 3+ Fair+ Ankle/Foot Strength Ankle and Foot Manual Muscle Testing Right Dorsiflexion (L4) 3- Fair- Plantarflexion (S1) 3- Fair- Inversion 3- Fair- Eversion (S1) 3- Fair- PT-OP-Q Treatments Start: 09/22/18 16:27 Freq: Status: Active Protocol: Document 12/31/18 11:14 EA (Rec: 12/31/18 11:17 EA [id number]) Therapeutic Exercises Supine Exercises 5 Supine Exercise Name Lumbars rotation/lower Reps/Minutes x 15 reps x 2 sets 4 Supine Exercise Name PPT head lift Reps/Minutes x 5SH x 5 reps Comments avoid valsalva 3 Supine Exercise Name PPT Reps/Minutes x 5SH x 10 reps Comments avoid valsalva 2 Supine Exercise Name SKTC (Gentle) Side bilateral Reps/Minutes x 15 SH x 2 reps 1 Supine Exercise Name Passive hamstringand piriformis gentle stretch Side bilateral Reps/Minutes x 15 SH x 2 reps Sidelying Exercises SL elbow press to sit Sidelying Exercise Name SL to sit Side right Reps/Minutes 10 Sitting Exercises 1 Sitting Exercise Name Lumbars ext stretch (Leaning fwd Side bilateral Reps/Minutes x 30SH x 2 reps Comments assess breathing Standing Exercises standing trunk ext and flexion Reps/Minutes 10 standing hip hinge Equipment Used red RTB Reps/Minutes 10 Manual Therapy Treatment Soft Tissue Mobilization 1 Body Location Paralumbars/ Left and right QL Mobilization Type Myofascial Release Rolling Sustained Pressure Trigger Point Release Body Position Sitting Comments Leaned on table. decrased depth with and intensity with sustained pressure and rollinmg as patient did not tolerated deep tissue. PT-OP-R Modalities Start: 09/22/18 16:27 Freq: Status: Active Protocol: Document 12/31/18 11:14 EA (Rec: 12/31/18 11:17 EA [id number]) Electric Stimulation Electric Stimulation Interferential Current (IFC) Body Location Paralumbars; left and right QL Duration (Minutes) 15 Intensity 16 Combined With Heat/Cold Hot Pack Comments sitting position PT-OP-T Assessment and Plan Start: 09/22/18 16:27 Freq: Status: Active Protocol: Document 12/31/18 11:14 EA (Rec: 12/31/18 11:17 EA [id number]) Physical Therapy Assessment Assessment Summary Assessment Pt tolerated treatment exercises well; tenderness to lower back is much less at this time. Physical Therapy Plan Next Visit Focus/Plan Next Note Type Treatment Note Next Visit Plan Begin standing exercises
--- NOTE | 2019-01-12 10:58 | PT.OTN ---
Current Diagnoses Low back pain (01/12/19) Physical Therapy Treatment Note PT-OP-A Visit Information Start: 09/22/18 16:27 Freq: Status: Active Protocol: Document 01/12/19 10:50 EA (Rec: 01/12/19 10:58 EA [id number]) Out-Patient Physical Therapy Visit Information Visit Information Visit Type Treatment Note Visit Start Time 09:45 Visit Stop Time 10:30 Total Visit Minutes 45 Visit Number 10 Number of SALES DEPARTMENT MANAGER Visits 0 PT-OP-B Current Condition Start: 09/22/18 16:27 Freq: Status: Active Protocol: Document 09/22/18 17:22 EA (Rec: 10/06/18 07:31 EA [id number]) Current Condition History of Current Condition Onset Date June 2018 History of Current Condition Present condition has been chronic for more than 5 years and excacerbated last June 2018 with no known reason. Patient had RLE surgery while in [place] and denies regain of full RLE strength. 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 [facility] X-ray done: Spinal stenosis dx. Future Testing and Treatments Planned None identified. 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 PT-OP-F Manual Assessment Start: 09/22/18 16:27 Freq: Status: Active Protocol: Document 12/29/18 12:44 EA (Rec: 12/29/18 12:53 EA [id number]) Manual Assessments Soft Tissue Assessment Soft Tissue Mobility Assessment Tight Paralumbars, QL. PT-OP-G Mobility & Gait Start: 09/22/18 16:27 Freq: Status: Active Protocol: Document 09/22/18 17:22 EA (Rec: 10/06/18 07:31 EA [id number]) OP Gait Assessment Gait Gait Assistance Required: Independent Able to Maintain Weight Bearing Status Yes During Gait Gait Deviations General Gait Pattern Antalgic Lateral Trunk Lean Factors Limiting Gait Function Factors Limiting Gait Function Decreased Activity Tolerance Decreased Strength Pain PT-OP-J Posture/Palpation/Skin Start: 09/22/18 16:27 Freq: Status: Active Protocol: Document 12/29/18 12:44 EA (Rec: 12/29/18 12:53 EA [id number]) Posture Evaluation Position Standing Evaluation View lat/post L-Spine Posture Increased Lordosis Pelvis Posture Anteriorly Tilted Palpation Assessment Location One Palpation Location Both QL > paralumbars Palpation Findings Soft Tissue Tightness Tenderness PT-OP-K Range of Motion Start: 09/22/18 16:27 Freq: Status: Active Protocol: Document 12/29/18 12:44 EA (Rec: 12/29/18 12:53 EA [id number]) Lumbar Spine Range of Motion Lumbar Spine Active Percentage Testing Position Standing Flexion 80 Extension 70 Rotation Left 65 Rotation Right 65 Lateral Flexion Left 50 Lateral Flexion Right 40 ROM Limitations Soft Tissue Tightness Pain PT-OP-L Special Tests Start: 09/22/18 16:27 Freq: Status: Active Protocol: Document 09/22/18 17:05 EA (Rec: 10/07/18 08:10 EA [id number]) Special Tests Lumbar Spine Special Tests Stork Test Test Results - Slump Test Results - Other- 1 Test Results + Debbie's PT-OP-M Strength Start: 09/22/18 16:27 Freq: Status: Active Protocol: Document 09/22/18 17:05 EA (Rec: 10/07/18 08:10 EA [id number]) Hip Strength Hip Manual Muscle Testing Right Flexion (L2) 2+ Poor+ Extension (S1) 3+ Fair+ Abduction 3+ Fair+ Adduction 4 Good External Rotation 3- Fair- Internal Rotation 3- Fair- Knee Strength Knee Manual Muscle Testing Right Flexion (S2) 3+ Fair+ Extension (L3) 3+ Fair+ Ankle/Foot Strength Ankle and Foot Manual Muscle Testing Right Dorsiflexion (L4) 3- Fair- Plantarflexion (S1) 3- Fair- Inversion 3- Fair- Eversion (S1) 3- Fair- PT-OP-Q Treatments Start: 09/22/18 16:27 Freq: Status: Active Protocol: Document 01/12/19 10:50 EA (Rec: 01/12/19 10:58 EA [id number]) Cardio Equipment Recumbent Stepper (Sci-Fit) Duration (Minutes) 7 Resistance 1.5 Seat Position 12 Therapeutic Exercises Supine Exercises 7 Supine Exercise Name Partial bridge Reps/Minutes x 5 reps x 3SH 6 Supine Exercise Name SLR w/ PPT Reps/Minutes x 3SH x 5 reps 5 Supine Exercise Name Lumbars rotation/lower Reps/Minutes x 15 reps x 2 sets 4 Supine Exercise Name PPT head lift Reps/Minutes x 5SH x 5 reps Comments avoid valsalva 3 Supine Exercise Name PPT Reps/Minutes x 5SH x 10 reps Comments avoid valsalva 2 Supine Exercise Name SKTC (Gentle) Side bilateral Reps/Minutes x 15 SH x 2 reps Comments Pssive Manual Therapy Treatment Soft Tissue Mobilization 1 Body Location Paralumbars/ Left and right QL Mobilization Type Myofascial Release Rolling Sustained Pressure Trigger Point Release Body Position Sitting Comments leaned to the table; starts and end with effleurage PT-OP-R Modalities Start: 09/22/18 16:27 Freq: Status: Active Protocol: Document 01/12/19 10:50 EA (Rec: 01/12/19 10:58 EA [id number]) Electric Stimulation Electric Stimulation Interferential Current (IFC) Body Location Paralumbars; left and right QL Duration (Minutes) 15 Intensity 22 Combined With Heat/Cold Hot Pack Comments sitting position PT-OP-T Assessment and Plan Start: 09/22/18 16:27 Freq: Status: Active Protocol: Document 01/12/19 10:50 EA (Rec: 01/12/19 10:58 EA [id number]) Physical Therapy Assessment Assessment Summary Assessment Noted decreased low back tenderness with improve mobility. Standing exercises not tolerated Physical Therapy Plan Next Visit Focus/Plan Next Note Type Treatment Note Next Visit Plan Begin to try standing exercises
--- NOTE | 2019-01-15 14:43 | PT.OTN ---
Current Diagnoses Low back pain (01/15/19) Physical Therapy Treatment Note PT-OP-A Visit Information Start: 09/22/18 16:27 Freq: Status: Active Protocol: Document 01/15/19 14:36 EA (Rec: 01/15/19 14:43 EA [id number]) Out-Patient Physical Therapy Visit Information Visit Information Visit Type Treatment Note Visit Start Time 13:00 Visit Stop Time 13:45 Total Visit Minutes 45 Visit Number 11 PT-OP-B Current Condition Start: 09/22/18 16:27 Freq: Status: Active Protocol: Document 09/22/18 17:22 EA (Rec: 10/06/18 07:31 EA [id number]) Current Condition History of Current Condition Onset Date June 2018 History of Current Condition Present condition has been chronic for more than 5 years and excacerbated last June 2018 with no known reason. Patient had RLE surgery while in [place] and denies regain of full RLE strength. 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 [facility] X-ray done: Spinal stenosis dx. Future Testing and Treatments Planned None identified. 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 Current Functional Impairments (Reported) Functional Limitations- ADL's Indep with difficulty in all activities with lifting and bending Functional Limitations- Mobility/Gait Indep with limited distance Functional Limitations- Work/School Limited at work in the machine shop PT-OP-C Subjective Start: 09/22/18 16:27 Freq: Status: Active Protocol: Document 01/15/19 14:36 EA (Rec: 01/15/19 14:43 EA [id number]) OP-PT Subjective Patient Comments Patient Comments Pt reports low back is quite sore today since last session; states he believes deep tissue massage aggravated his back. Patient mentioned that he is more itno ahving injection shots at this time as he believes cortisone shot made his back better but is wearing out now. PT-OP-F Manual Assessment Start: 09/22/18 16:27 Freq: Status: Active Protocol: Document 12/29/18 12:44 EA (Rec: 12/29/18 12:53 EA [id number]) Manual Assessments Soft Tissue Assessment Soft Tissue Mobility Assessment Tight Paralumbars, QL. PT-OP-G Mobility & Gait Start: 09/22/18 16:27 Freq: Status: Active Protocol: Document 09/22/18 17:22 EA (Rec: 10/06/18 07:31 EA [id number]) OP Gait Assessment Gait Gait Assistance Required: Independent Able to Maintain Weight Bearing Status Yes During Gait Gait Deviations General Gait Pattern Antalgic Lateral Trunk Lean Factors Limiting Gait Function Factors Limiting Gait Function Decreased Activity Tolerance Decreased Strength Pain PT-OP-J Posture/Palpation/Skin Start: 09/22/18 16:27 Freq: Status: Active Protocol: Document 12/29/18 12:44 EA (Rec: 12/29/18 12:53 EA [id number]) Posture Evaluation Position Standing Evaluation View lat/post L-Spine Posture Increased Lordosis Pelvis Posture Anteriorly Tilted Palpation Assessment Location One Palpation Location Both QL > paralumbars Palpation Findings Soft Tissue Tightness Tenderness PT-OP-K Range of Motion Start: 09/22/18 16:27 Freq: Status: Active Protocol: Document 12/29/18 12:44 EA (Rec: 12/29/18 12:53 EA [id number]) Lumbar Spine Range of Motion Lumbar Spine Active Percentage Testing Position Standing Flexion 80 Extension 70 Rotation Left 65 Rotation Right 65 Lateral Flexion Left 50 Lateral Flexion Right 40 ROM Limitations Soft Tissue Tightness Pain PT-OP-L Special Tests Start: 09/22/18 16:27 Freq: Status: Active Protocol: Document 09/22/18 17:05 EA (Rec: 10/07/18 08:10 EA [id number]) Special Tests Lumbar Spine Special Tests Stork Test Test Results - Slump Test Results - Other- 1 Test Results + Debbie's PT-OP-M Strength Start: 09/22/18 16:27 Freq: Status: Active Protocol: Document 09/22/18 17:05 EA (Rec: 10/07/18 08:10 EA [id number]) Hip Strength Hip Manual Muscle Testing Right Flexion (L2) 2+ Poor+ Extension (S1) 3+ Fair+ Abduction 3+ Fair+ Adduction 4 Good External Rotation 3- Fair- Internal Rotation 3- Fair- Knee Strength Knee Manual Muscle Testing Right Flexion (S2) 3+ Fair+ Extension (L3) 3+ Fair+ Ankle/Foot Strength Ankle and Foot Manual Muscle Testing Right Dorsiflexion (L4) 3- Fair- Plantarflexion (S1) 3- Fair- Inversion 3- Fair- Eversion (S1) 3- Fair- PT-OP-Q Treatments Start: 09/22/18 16:27 Freq: Status: Active Protocol: Document 01/15/19 14:36 EA (Rec: 01/15/19 14:43 EA [id number]) Therapeutic Exercises Supine Exercises 6 Supine Exercise Name SLR w/ PPT Reps/Minutes x 3SH x 5 reps 2 Supine Exercise Name SKTC (Gentle) Side bilateral Reps/Minutes x 15 SH x 2 reps Comments Pssive 1 Supine Exercise Name Passive hamstringand piriformis gentle stretch Side bilateral Reps/Minutes x 15 SH x 2 reps Sitting Exercises 2 Sitting Exercise Name Lumbar side flexors stretch 1 Sitting Exercise Name Lumbars ext stretch (Leaning fwd Side bilateral Reps/Minutes x 30SH x 2 reps Comments assess breathing Manual Therapy Treatment Soft Tissue Mobilization 1 Body Location Paralumbars/ Left and right QL Mobilization Type Myofascial Release Rolling Sustained Pressure Trigger Point Release Intensity/Depth Moderate Body Position Sitting Comments leaned to the table; starts and end with effleurage PT-OP-R Modalities Start: 09/22/18 16:27 Freq: Status: Active Protocol: Document 01/15/19 14:36 EA (Rec: 01/15/19 14:43 EA [id number]) Electric Stimulation Electric Stimulation Interferential Current (IFC) Body Location Paralumbars; left and right QL Duration (Minutes) 15 Intensity 22 Combined With Heat/Cold Hot Pack Comments sitting position PT-OP-T Assessment and Plan Start: 09/22/18 16:27 Freq: Status: Active Protocol: Document 01/15/19 14:36 EA (Rec: 01/15/19 14:43 EA [id number]) Physical Therapy Assessment Assessment Summary Assessment Tolerated treatment well with no discomfort superficial STM. Pt is advised to use STC to decreased lateral trunk bending when ambulating. Physical Therapy Plan Next Visit Focus/Plan Next Note Type Treatment Note
--- NOTE | 2019-01-29 15:57 | PT.OTN ---
Current Diagnoses Low back pain (01/29/19) Physical Therapy Treatment Note PT-OP-A Visit Information Start: 09/22/18 16:27 Freq: Status: Active Protocol: Document 01/29/19 15:13 EA (Rec: 01/29/19 15:18 EA [id number]) Out-Patient Physical Therapy Visit Information Visit Information Visit Start Time 14:30 Visit Stop Time 15:15 Visit Number 12 PT-OP-B Current Condition Start: 09/22/18 16:27 Freq: Status: Active Protocol: Document 09/22/18 17:22 EA (Rec: 10/06/18 07:31 EA [id number]) Current Condition History of Current Condition Onset Date June 2018 History of Current Condition Present condition has been chronic for more than 5 years and excacerbated last June 2018 with no known reason. Patient had RLE surgery while in [place] and denies regain of full RLE strength. 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 [facility] X-ray done: Spinal stenosis dx. Future Testing and Treatments Planned None identified. 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 Current Functional Impairments (Reported) Functional Limitations- ADL's Indep with difficulty in all activities with lifting and bending Functional Limitations- Mobility/Gait Indep with limited distance Functional Limitations- Work/School Limited at work in the machine shop PT-OP-C Subjective Start: 09/22/18 16:27 Freq: Status: Active Protocol: Document 01/29/19 15:13 EA (Rec: 01/29/19 15:18 EA [id number]) OP-PT Subjective Patient Comments Patient Comments Pt reports had a lumbar shot 3 days ago and back is much feeling better; states that he would like to focus on strengthening both legs. PT-OP-F Manual Assessment Start: 09/22/18 16:27 Freq: Status: Active Protocol: Document 12/29/18 12:44 EA (Rec: 12/29/18 12:53 EA [id number]) Manual Assessments Soft Tissue Assessment Soft Tissue Mobility Assessment Tight Paralumbars, QL. PT-OP-G Mobility & Gait Start: 09/22/18 16:27 Freq: Status: Active Protocol: Document 09/22/18 17:22 EA (Rec: 10/06/18 07:31 EA [id number]) OP Gait Assessment Gait Gait Assistance Required: Independent Able to Maintain Weight Bearing Status Yes During Gait Gait Deviations General Gait Pattern Antalgic Lateral Trunk Lean Factors Limiting Gait Function Factors Limiting Gait Function Decreased Activity Tolerance Decreased Strength Pain PT-OP-J Posture/Palpation/Skin Start: 09/22/18 16:27 Freq: Status: Active Protocol: Document 12/29/18 12:44 EA (Rec: 12/29/18 12:53 EA [id number]) Posture Evaluation Position Standing Evaluation View lat/post L-Spine Posture Increased Lordosis Pelvis Posture Anteriorly Tilted Palpation Assessment Location One Palpation Location Both QL > paralumbars Palpation Findings Soft Tissue Tightness Tenderness PT-OP-K Range of Motion Start: 09/22/18 16:27 Freq: Status: Active Protocol: Document 12/29/18 12:44 EA (Rec: 12/29/18 12:53 EA [id number]) Lumbar Spine Range of Motion Lumbar Spine Active Percentage Testing Position Standing Flexion 80 Extension 70 Rotation Left 65 Rotation Right 65 Lateral Flexion Left 50 Lateral Flexion Right 40 ROM Limitations Soft Tissue Tightness Pain PT-OP-L Special Tests Start: 09/22/18 16:27 Freq: Status: Active Protocol: Document 09/22/18 17:05 EA (Rec: 10/07/18 08:10 EA [id number]) Special Tests Lumbar Spine Special Tests Stork Test Test Results - Slump Test Results - Other- 1 Test Results + Dashalen's PT-OP-M Strength Start: 09/22/18 16:27 Freq: Status: Active Protocol: Document 09/22/18 17:05 EA (Rec: 10/07/18 08:10 EA [id number]) Hip Strength Hip Manual Muscle Testing Right Flexion (L2) 2+ Poor+ Extension (S1) 3+ Fair+ Abduction 3+ Fair+ Adduction 4 Good External Rotation 3- Fair- Internal Rotation 3- Fair- Knee Strength Knee Manual Muscle Testing Right Flexion (S2) 3+ Fair+ Extension (L3) 3+ Fair+ Ankle/Foot Strength Ankle and Foot Manual Muscle Testing Right Dorsiflexion (L4) 3- Fair- Plantarflexion (S1) 3- Fair- Inversion 3- Fair- Eversion (S1) 3- Fair- PT-OP-Q Treatments Start: 09/22/18 16:27 Freq: Status: Active Protocol: Document 01/29/19 15:13 EA (Rec: 01/29/19 15:18 EA [id number]) Cardio Equipment Recumbent Stepper (Sci-Fit) Duration (Minutes) 7 Resistance 2 Seat Position 12 Gym Equipment Cable Column (Body Solid) Leg Extension Resistance 20 lbs Reps/Time x 15 reps Hip Abduction Resistance 20 lbs Reps/Time x 15 reps Shuttle Recovery Unilateral Squats Resistance 1.5 cord Reps/Time x 15 reps Bilateral Squats Resistance 3 cords Reps/Time x 15 reps Therapeutic Exercises Supine Exercises 7 Supine Exercise Name Partial bridge Reps/Minutes x 5 reps x 3SH 6 Supine Exercise Name SLR w/ PPT Reps/Minutes x 3SH x 5 reps 5 Supine Exercise Name Lumbars rotation/lower Reps/Minutes x 15 reps x 2 sets 4 Supine Exercise Name PPT head lift Reps/Minutes x 5SH x 5 reps Comments avoid valsalva 3 Supine Exercise Name PPT Reps/Minutes x 5SH x 10 reps Comments avoid valsalva 2 Supine Exercise Name SKTC (Gentle) Side bilateral Reps/Minutes x 15 SH x 2 reps Comments Pssive 1 Supine Exercise Name Passive hamstringand piriformis gentle stretch Side bilateral Reps/Minutes x 15 SH x 2 reps Sitting Exercises 2 Sitting Exercise Name Lumbar side flexors stretch 1 Sitting Exercise Name Lumbars ext stretch (Leaning fwd Side bilateral Reps/Minutes x 30SH x 2 reps Comments assess breathing Standing Exercises 1 Standing Exercise Name Side step Resistance YTB Reps/Minutes x 12 t x 2 lengths standing trunk ext and flexion Reps/Minutes 10 PT-OP-R Modalities Start: 09/22/18 16:27 Freq: Status: Active Protocol: Document 01/29/19 15:13 EA (Rec: 01/29/19 15:18 EA [id number]) Electric Stimulation Electric Stimulation Interferential Current (IFC) Body Location Paralumbars; left and right QL Duration (Minutes) 15 Intensity 22 Combined With Heat/Cold Hot Pack Comments sitting position PT-OP-T Assessment and Plan Start: 09/22/18 16:27 Freq: Status: Active Protocol: Document 01/29/19 15:13 EA (Rec: 01/29/19 15:18 MARTIN [id number]) Physical Therapy Assessment Assessment Summary Assessment Tolerated treatment well. Weakness to both LE's still evident, but due multiple comorbidities, strengthening exercises should be carefully monitored. Physical Therapy Plan Next Visit Focus/Plan Next Note Type Treatment Note Next Visit Plan Begin to try standing exercises; strengthening exercises
--- NOTE | 2019-02-03 17:24 | PT.OTN ---
Current Diagnoses Low back pain (02/03/19) Physical Therapy Treatment Note PT-OP-A Visit Information Start: 09/22/18 16:27 Freq: Status: Active Protocol: Document 02/03/19 16:47 EA (Rec: 02/03/19 16:52 EA [id number]) Out-Patient Physical Therapy Visit Information Visit Information Visit Start Time 16:00 Visit Stop Time 16:45 Visit Number 13 PT-OP-B Current Condition Start: 09/22/18 16:27 Freq: Status: Active Protocol: Document 09/22/18 17:22 EA (Rec: 10/06/18 07:31 EA [id number]) Current Condition History of Current Condition Onset Date June 2018 History of Current Condition Present condition has been chronic for more than 5 years and excacerbated last June 2018 with no known reason. Patient had RLE surgery while in [place] and denies regain of full RLE strength. 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 [facility] X-ray done: Spinal stenosis dx. Future Testing and Treatments Planned None identified. 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 Pt states unable to perform HEP and as well does not like using STC as he feels it does not help him. PT-OP-F Manual Assessment Start: 09/22/18 16:27 Freq: Status: Active Protocol: Document 12/29/18 12:44 EA (Rec: 12/29/18 12:53 EA [id number]) Manual Assessments Soft Tissue Assessment Soft Tissue Mobility Assessment Tight Paralumbars, QL. PT-OP-G Mobility & Gait Start: 09/22/18 16:27 Freq: Status: Active Protocol: Document 09/22/18 17:22 EA (Rec: 10/06/18 07:31 EA [id number]) OP Gait Assessment Gait Gait Assistance Required: Independent Able to Maintain Weight Bearing Status Yes During Gait Gait Deviations General Gait Pattern Antalgic Lateral Trunk Lean Factors Limiting Gait Function Factors Limiting Gait Function Decreased Activity Tolerance Decreased Strength Pain PT-OP-J Posture/Palpation/Skin Start: 09/22/18 16:27 Freq: Status: Active Protocol: Document 12/29/18 12:44 EA (Rec: 12/29/18 12:53 EA [id number]) Posture Evaluation Position Standing Evaluation View lat/post L-Spine Posture Increased Lordosis Pelvis Posture Anteriorly Tilted Palpation Assessment Location One Palpation Location Both QL > paralumbars Palpation Findings Soft Tissue Tightness Tenderness PT-OP-K Range of Motion Start: 09/22/18 16:27 Freq: Status: Active Protocol: Document 12/29/18 12:44 EA (Rec: 12/29/18 12:53 EA [id number]) Lumbar Spine Range of Motion Lumbar Spine Active Percentage Testing Position Standing Flexion 80 Extension 70 Rotation Left 65 Rotation Right 65 Lateral Flexion Left 50 Lateral Flexion Right 40 ROM Limitations Soft Tissue Tightness Pain PT-OP-L Special Tests Start: 09/22/18 16:27 Freq: Status: Active Protocol: Document 09/22/18 17:05 EA (Rec: 10/07/18 08:10 EA [id number]) Special Tests Lumbar Spine Special Tests Stork Test Test Results - Slump Test Results - Other- 1 Test Results + Dasahlen's PT-OP-M Strength Start: 09/22/18 16:27 Freq: Status: Active Protocol: Document 09/22/18 17:05 EA (Rec: 10/07/18 08:10 EA [id number]) Hip Strength Hip Manual Muscle Testing Right Flexion (L2) 2+ Poor+ Extension (S1) 3+ Fair+ Abduction 3+ Fair+ Adduction 4 Good External Rotation 3- Fair- Internal Rotation 3- Fair- Knee Strength Knee Manual Muscle Testing Right Flexion (S2) 3+ Fair+ Extension (L3) 3+ Fair+ Ankle/Foot Strength Ankle and Foot Manual Muscle Testing Right Dorsiflexion (L4) 3- Fair- Plantarflexion (S1) 3- Fair- Inversion 3- Fair- Eversion (S1) 3- Fair- PT-OP-Q Treatments Start: 09/22/18 16:27 Freq: Status: Active Protocol: Document 02/03/19 17:17 EA (Rec: 02/03/19 17:23 EA [id number]) Cardio Equipment Recumbent Stepper (Sci-Fit) Duration (Minutes) 7 Resistance 3 Seat Position 12 Gym Equipment Cable Column (Body Solid) Leg Extension Resistance 20 lbs Reps/Time x 15 reps Hip Abduction Resistance 20 lbs Reps/Time x 15 reps Shuttle Recovery Unilateral Squats Resistance 1.5 cord Reps/Time x 15 reps Bilateral Squats Resistance 3 cords Reps/Time x 15 reps Therapeutic Exercises Supine Exercises 7 Supine Exercise Name Partial bridge Reps/Minutes x 5 reps x 3SH 6 Supine Exercise Name SLR w/ PPT Reps/Minutes x 3SH x 5 reps 5 Supine Exercise Name Lumbars rotation/lower Reps/Minutes x 15 reps x 2 sets 4 Supine Exercise Name PPT head lift Reps/Minutes x 5SH x 5 reps Comments avoid valsalva 3 Supine Exercise Name PPT Reps/Minutes x 5SH x 10 reps Comments avoid valsalva 2 Supine Exercise Name SKTC (Gentle) Side bilateral Reps/Minutes x 15 SH x 2 reps Comments Pssive 1 Supine Exercise Name Passive hamstringand piriformis gentle stretch Side bilateral Reps/Minutes x 15 SH x 2 reps Sitting Exercises 1 Reps/Minutes x 30SH x 2 reps Comments assess breathing PT-OP-R Modalities Start: 09/22/18 16:27 Freq: Status: Active Protocol: Document 02/03/19 17:17 EA (Rec: 02/03/19 17:23 EA [id number]) Electric Stimulation Electric Stimulation Interferential Current (IFC) Body Location Paralumbars; left and right QL Duration (Minutes) 15 Intensity 22 Combined With Heat/Cold Hot Pack Comments sitting position PT-OP-T Assessment and Plan Start: 09/22/18 16:27 Freq: Status: Active Protocol: Document 02/03/19 17:17 EA (Rec: 02/03/19 17:23 EA [id number]) Physical Therapy Assessment Assessment Summary Assessment Pt showing slow progress at this due to not following recommended HEP and pain management. Physical Therapy Plan Next Visit Focus/Plan Next Note Type Treatment Note Next Visit Plan Cont with current plan of strengthening to both LE
--- NOTE | 2019-02-09 17:13 | PT.OTRE ---
Current Diagnoses Low back pain (02/09/19) Provider Visit Care Team Role Provider Type Robin Reyes MD Attending Provider Non-Staff Primary Care Provider Specialty: Emergency Medicine Address: [address] [place] [address], [place], [address] Email: Physical Therapy Re-Evaluation PT-OP-A Visit Information Start: 09/22/18 16:27 Freq: Status: Active Protocol: Document 02/09/19 14:29 EA (Rec: 02/09/19 14:33 EA [id number]) Out-Patient Physical Therapy Visit Information Visit Information Visit Start Time 14:30 Visit Stop Time 15:15 Visit Number 14 PT-OP-B Current Condition Start: 09/22/18 16:27 Freq: Status: Active Protocol: Document 09/22/18 17:22 EA (Rec: 10/06/18 07:31 EA [id number]) Current Condition History of Current Condition Onset Date June 2018 History of Current Condition Present condition has been chronic for more than 5 years and excacerbated last June 2018 with no known reason. Patient had RLE surgery while in [place] and denies regain of full RLE strength. 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 [facility] X-ray done: Spinal stenosis dx. Future Testing and Treatments Planned None identified. 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 Current Functional Impairments (Reported) Functional Limitations- ADL's Indep with difficulty in all activities with lifting and bending Functional Limitations- Mobility/Gait Indep with limited distance Functional Limitations- Work/School Limited at work in the machine shop PT-OP-C Subjective Start: 09/22/18 16:27 Freq: Status: Active Protocol: Document 02/09/19 14:35 EA (Rec: 02/09/19 14:37 EA [id number]) OP-PT Subjective Patient Comments Patient Comments Patient reports low back still hurts; states unable to perform HEP due to work. Pt also mentioned that he went to his general check up and everything doing ok. Patient Reported Progress Improving Patient Questionnaires Oswestry Low Back Index Oswestry Score 16/50 Oswestry Impairment 1 to 19% Impaired (Score 1-19) PT-OP-F Manual Assessment Start: 09/22/18 16:27 Freq: Status: Active Protocol: Document 02/09/19 17:04 EA (Rec: 02/09/19 17:05 EA [id number]) Manual Assessments Soft Tissue Assessment Soft Tissue Mobility Assessment Tight Paralumbars, QL. PT-OP-G Mobility & Gait Start: 09/22/18 16:27 Freq: Status: Active Protocol: Document 09/22/18 17:22 EA (Rec: 10/06/18 07:31 EA [id number]) OP Gait Assessment Gait Gait Assistance Required: Independent Able to Maintain Weight Bearing Status Yes During Gait Gait Deviations General Gait Pattern Antalgic Lateral Trunk Lean Factors Limiting Gait Function Factors Limiting Gait Function Decreased Activity Tolerance Decreased Strength Pain PT-OP-J Posture/Palpation/Skin Start: 09/22/18 16:27 Freq: Status: Active Protocol: Document 02/09/19 17:04 EA (Rec: 02/09/19 17:05 EA [id number]) Posture Evaluation Position Standing Evaluation View lat/post L-Spine Posture Increased Lordosis Pelvis Posture Anteriorly Tilted Comments Posture Comments Fair posture with increased lumbar lordosis Palpation Assessment Location One Palpation Location Both QL > paralumbars Palpation Findings Soft Tissue Tightness Tenderness PT-OP-K Range of Motion Start: 09/22/18 16:27 Freq: Status: Active Protocol: Document 02/09/19 17:04 EA (Rec: 02/09/19 17:05 EA [id number]) Lumbar Spine Range of Motion Lumbar Spine Active Percentage Testing Position Standing Flexion 80 Extension 75 Rotation Left 70 Rotation Right 70 Lateral Flexion Left 60 Lateral Flexion Right 60 ROM Limitations Soft Tissue Tightness Pain PT-OP-L Special Tests Start: 09/22/18 16:27 Freq: Status: Active Protocol: Document 09/22/18 17:05 EA (Rec: 10/07/18 08:10 EA [id number]) Special Tests Lumbar Spine Special Tests Stork Test Test Results - Slump Test Results - Other- 1 Test Results + Debbie's PT-OP-M Strength Start: 09/22/18 16:27 Freq: Status: Active Protocol: Document 09/22/18 17:05 EA (Rec: 10/07/18 08:10 EA [id number]) Hip Strength Hip Manual Muscle Testing Right Flexion (L2) 2+ Poor+ Extension (S1) 3+ Fair+ Abduction 3+ Fair+ Adduction 4 Good External Rotation 3- Fair- Internal Rotation 3- Fair- Knee Strength Knee Manual Muscle Testing Right Flexion (S2) 3+ Fair+ Extension (L3) 3+ Fair+ Ankle/Foot Strength Ankle and Foot Manual Muscle Testing Right Dorsiflexion (L4) 3- Fair- Plantarflexion (S1) 3- Fair- Inversion 3- Fair- Eversion (S1) 3- Fair- PT-OP-Q Treatments Start: 09/22/18 16:27 Freq: Status: Active Protocol: Document 02/09/19 14:29 EA (Rec: 02/09/19 14:33 EA [id number]) Cardio Equipment Recumbent Stepper (Sci-Fit) Duration (Minutes) 7 Resistance 3 Seat Position 12 Gym Equipment Cable Column (Body Solid) Leg Extension Resistance 20 lbs Reps/Time x 15 reps Hip Abduction Resistance 20 lbs Reps/Time x 15 reps Shuttle Recovery Unilateral Squats Resistance 1.5 cord Reps/Time x 15 reps Bilateral Squats Resistance 4 cords Reps/Time x 15 reps Therapeutic Exercises Supine Exercises 7 Supine Exercise Name Partial bridge Reps/Minutes x 5 reps x 3SH 6 Supine Exercise Name SLR w/ PPT Reps/Minutes x 3SH x 5 reps 5 Supine Exercise Name Lumbars rotation/lower Reps/Minutes x 15 reps x 2 sets 2 Supine Exercise Name SKTC (Gentle) Side bilateral Reps/Minutes x 15 SH x 2 reps Comments Pssive Standing Exercises standing hip hinge Equipment Used red RTB Reps/Minutes 10 PT-OP-R Modalities Start: 09/22/18 16:27 Freq: Status: Active Protocol: Document 02/09/19 14:29 EA (Rec: 02/09/19 14:33 EA [id number]) Electric Stimulation Electric Stimulation Interferential Current (IFC) Body Location Paralumbars; left and right QL Duration (Minutes) 15 Intensity 22 Combined With Heat/Cold Hot Pack Comments sitting position PT-OP-T Assessment and Plan Start: 09/22/18 16:27 Freq: Status: Active Protocol: Document 02/09/19 14:29 EA (Rec: 02/09/19 14:33 EA [id number]) Physical Therapy Assessment Impairments Impairments Activity Tolerance Gait Pain Posture ROM Soft Tissue Mobility Strength Goals Five Impairment No HEP in place [facility] Goal (LTG) Patient will comply to HEP with good understanding to safety. LTG Duration 4 wks (min progression) Four Impairment Impaired lifting mechanics [facility] Goal (LTG) Patient will perform good lifting mechanics to decrease condition worsening. LTG Duration 4 wks (slight improvement but requires cues) Three Impairment Impaired walking tolerance [place] [employer] Goal (LTG) Patient will ambulate more than 10 mins with no increase in symptoms LTG Duration 4 wks (improving) Two Impairment Impaired standing tolerance [facility] Goal (LTG) Patient will stand more than 10 mins with no increase in symptoms LTG Duration 4 wks One Impairment Oswestry score of 20/50 [facility] Goal (LTG) Patient will have Oswestry low back pain score less than 12/ 50 LTG Duration 4 wks Assessment Summary Assessment Pt exhibits decreased low back pain symptoms with slight improved tolerance to therapeutic exercises. Difficulty of losing weight and inability of the patient to adhere to recommended HEP due to work demand on his shop seems to limit his progress. However, patient continued to show good motivation to improve. Physical Therapy Plan Frequency and Duration Frequency of Treatment 2x/Week Duration of Treatment 6 wks Plan of Care Start Date 02/09/19 Plan of Care End Date 03/23/19 Therapeutic Interventions Therapeutic Interventions Gait Training Home Exercise Program Neuromuscular Re-education Patient/Caregiver Education Soft Tissue Mobilization Therapeutic Activities Therapeutic Exercises Modalities Cold Pack/Ice Massage Electric Stimulation Hot Packs Next Visit Focus/Plan Next Note Type Treatment Note Next Visit Plan Cont with current plan of strengthening to both LE
--- NOTE | 2019-02-09 17:15 | PT.OPPOC ---
Current Diagnoses Low back pain (02/09/19) Provider Visit Care Team Role Provider Type Robin Reyes MD Attending Provider Non-Staff Primary Care Provider Specialty: Emergency Medicine Address: [address] [place] [address], [place], [address] Email: Plan Of Care PT-OP-T Assessment and Plan Start: 09/22/18 16:27 Freq: Status: Active Protocol: Document 02/09/19 14:29 EA (Rec: 02/09/19 14:33 EA [id number]) Physical Therapy Assessment Impairments Impairments Activity Tolerance Gait Pain Posture ROM Soft Tissue Mobility Strength Goals Five Impairment No HEP in place [facility] Goal (LTG) Patient will comply to HEP with good understanding to safety. LTG Duration 4 wks (min progression) Four Impairment Impaired lifting mechanics [employer] Goal (LTG) Patient will perform good lifting mechanics to decrease condition worsening. LTG Duration 4 wks (slight improvement but requires cues) Three Impairment Impaired walking tolerance [facility] Goal (LTG) Patient will ambulate more than 10 mins with no increase in symptoms LTG Duration 4 wks (improving) Two Impairment Impaired standing tolerance [facility] Goal (LTG) Patient will stand more than 10 mins with no increase in symptoms LTG Duration 4 wks One Impairment Oswestry score of 20/50 [employer] Goal (LTG) Patient will have Oswetry low back pain score less than 12/ 50 LTG Duration 4 wks Assessment Summary Assessment Pt exhibits decreased low back pain symptoms with slight improved tolerance to therapeutic exercises. Difficulty of losing weight and inability of the patient to adhere to recommended HEP due to work demand on his shop seems to limit his progress. However, patient continued to show good motivation to improve. Physical Therapy Plan Frequency and Duration Frequency of Treatment 2x/Week Duration of Treatment 8 wks Plan of Care Start Date 02/09/19 Plan of Care End Date 04/06/19 Therapeutic Interventions Therapeutic Interventions Gait Training Home Exercise Program Neuromuscular Re-education Patient/Caregiver Education Soft Tissue Mobilization Therapeutic Activities Therapeutic Exercises Modalities Cold Pack/Ice Massage Electric Stimulation Hot Packs Next Visit Focus/Plan Next Note Type Treatment Note Next Visit Plan Cont with current plan of strengthening to both LE Plan of Care Dates Plan of Care Start Date 02/09/19 Plan of Care End Date 04/06/19 Please Sign and Return: I have reviewed this Plan of Care and certify that the skilled therapy services above are required to meet the patient?s needs. Physician Signature Date Printed Name and Credentials Clinical Instructor Signature Printed Name and Credentials
--- NOTE | 2019-02-12 17:09 | PT.OTN ---
Current Diagnoses Low back pain (02/12/19) Physical Therapy Treatment Note PT-OP-A Visit Information Start: 09/22/18 16:27 Freq: Status: Active Protocol: Document 02/12/19 16:50 EA (Rec: 02/12/19 16:53 EA [id number]) Out-Patient Physical Therapy Visit Information Visit Information Visit Type Treatment Note Visit Start Time 16:00 Visit Stop Time 16:53 Visit Number 15 PT-OP-B Current Condition Start: 09/22/18 16:27 Freq: Status: Active Protocol: Document 09/22/18 17:22 EA (Rec: 10/06/18 07:31 EA [id number]) Current Condition History of Current Condition Onset Date June 2018 History of Current Condition Present condition has been chronic for more than 5 years and excacerbated last June 2018 with no known reason. Patient had RLE surgery while in [place] and denies regain of full RLE strength. 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 [facility] X-ray done: Spinal stenosis dx. Future Testing and Treatments Planned None identified. 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 PT-OP-F Manual Assessment Start: 09/22/18 16:27 Freq: Status: Active Protocol: Document 02/09/19 17:04 EA (Rec: 02/09/19 17:05 EA [id number]) Manual Assessments Soft Tissue Assessment Soft Tissue Mobility Assessment Tight Paralumbars, QL. PT-OP-G Mobility & Gait Start: 09/22/18 16:27 Freq: Status: Active Protocol: Document 09/22/18 17:22 EA (Rec: 10/06/18 07:31 EA [id number]) OP Gait Assessment Gait Gait Assistance Required: Independent Able to Maintain Weight Bearing Status Yes During Gait Gait Deviations General Gait Pattern Antalgic Lateral Trunk Lean Factors Limiting Gait Function Factors Limiting Gait Function Decreased Activity Tolerance Decreased Strength Pain PT-OP-J Posture/Palpation/Skin Start: 09/22/18 16:27 Freq: Status: Active Protocol: Document 02/09/19 17:04 EA (Rec: 02/09/19 17:05 EA [id number]) Posture Evaluation Position Standing Evaluation View lat/post L-Spine Posture Increased Lordosis Pelvis Posture Anteriorly Tilted Comments Posture Comments Fair posture with increased lumbar lordosis Palpation Assessment Location One Palpation Location Both QL > paralumbars Palpation Findings Soft Tissue Tightness Tenderness PT-OP-K Range of Motion Start: 09/22/18 16:27 Freq: Status: Active Protocol: Document 02/09/19 17:04 EA (Rec: 02/09/19 17:05 EA [id number]) Lumbar Spine Range of Motion Lumbar Spine Active Percentage Testing Position Standing Flexion 80 Extension 75 Rotation Left 70 Rotation Right 70 Lateral Flexion Left 60 Lateral Flexion Right 60 ROM Limitations Soft Tissue Tightness Pain PT-OP-L Special Tests Start: 09/22/18 16:27 Freq: Status: Active Protocol: Document 09/22/18 17:05 EA (Rec: 10/07/18 08:10 EA [id number]) Special Tests Lumbar Spine Special Tests Stork Test Test Results - Slump Test Results - Other- 1 Test Results + Debbie's PT-OP-M Strength Start: 09/22/18 16:27 Freq: Status: Active Protocol: Document 09/22/18 17:05 EA (Rec: 10/07/18 08:10 EA [id number]) Hip Strength Hip Manual Muscle Testing Right Flexion (L2) 2+ Poor+ Extension (S1) 3+ Fair+ Abduction 3+ Fair+ Adduction 4 Good External Rotation 3- Fair- Internal Rotation 3- Fair- Knee Strength Knee Manual Muscle Testing Right Flexion (S2) 3+ Fair+ Extension (L3) 3+ Fair+ Ankle/Foot Strength Ankle and Foot Manual Muscle Testing Right Dorsiflexion (L4) 3- Fair- Plantarflexion (S1) 3- Fair- Inversion 3- Fair- Eversion (S1) 3- Fair- PT-OP-Q Treatments Start: 09/22/18 16:27 Freq: Status: Active Protocol: Document 02/12/19 16:50 EA (Rec: 02/12/19 16:53 EA [id number]) Cardio Equipment Recumbent Stepper (Sci-Fit) Duration (Minutes) 7 Resistance 3 Seat Position 12 Gym Equipment Cable Column (Body Solid) Hip Adduction Resistance 30 lbs x 15 reps x 2 Leg Extension Resistance 20 lbs Reps/Time x 15 reps x2 Hip Abduction Resistance 30 lbs Reps/Time x 15 reps x 2 Shuttle Recovery Unilateral Squats Resistance 2 cord Reps/Time x 15 reps x 2 Bilateral Squats Resistance 4 cords Reps/Time x 15 reps x 3 Therapeutic Exercises Supine Exercises 7 Supine Exercise Name Partial bridge Reps/Minutes x 5 reps x 3SH 6 Supine Exercise Name SLR w/ PPT Reps/Minutes x 3SH x 5 reps 5 Supine Exercise Name Lumbars rotation/lower Reps/Minutes x 15 reps x 2 sets PT-OP-R Modalities Start: 09/22/18 16:27 Freq: Status: Active Protocol: Document 02/12/19 16:50 EA (Rec: 02/12/19 16:53 EA [id number]) Electric Stimulation Electric Stimulation Interferential Current (IFC) Body Location Paralumbars; left and right QL Duration (Minutes) 15 Intensity 22 Combined With Heat/Cold Hot Pack Comments sitting position PT-OP-T Assessment and Plan Start: 09/22/18 16:27 Freq: Status: Active Protocol: Document 02/12/19 16:50 EA (Rec: 02/12/19 16:53 EA [id number]) Physical Therapy Assessment Assessment Summary Assessment Tolerated treatment well. Physical Therapy Plan Next Visit Focus/Plan Next Note Type Treatment Note Next Visit Plan Cont with current plan of strengthening to both LE
--- NOTE | 2019-02-17 17:39 | PT.OTN ---
Current Diagnoses Low back pain (02/17/19) Physical Therapy Treatment Note PT-OP-A Visit Information Start: 09/22/18 16:27 Freq: Status: Active Protocol: Document 02/17/19 16:38 EA (Rec: 02/17/19 16:43 EA [id number]) Out-Patient Physical Therapy Visit Information Visit Information Visit Type Treatment Note Visit Start Time 16:00 Visit Stop Time 16:53 Visit Number 16 PT-OP-B Current Condition Start: 09/22/18 16:27 Freq: Status: Active Protocol: Document 09/22/18 17:22 EA (Rec: 10/06/18 07:31 EA [id number]) Current Condition History of Current Condition Onset Date June 2018 History of Current Condition Present condition has been chronic for more than 5 years and excacerbated last June 2018 with no known reason. Patient had RLE surgery while in [place] and denies regain of full RLE strength. 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 [facility] X-ray done: Spinal stenosis dx. Future Testing and Treatments Planned None identified. 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 Patient Reported Progress Improving PT-OP-F Manual Assessment Start: 09/22/18 16:27 Freq: Status: Active Protocol: Document 02/09/19 17:04 EA (Rec: 02/09/19 17:05 EA [id number]) Manual Assessments Soft Tissue Assessment Soft Tissue Mobility Assessment Tight Paralumbars, QL. PT-OP-G Mobility & Gait Start: 09/22/18 16:27 Freq: Status: Active Protocol: Document 09/22/18 17:22 EA (Rec: 10/06/18 07:31 EA [id number]) OP Gait Assessment Gait Gait Assistance Required: Independent Able to Maintain Weight Bearing Status Yes During Gait Gait Deviations General Gait Pattern Antalgic Lateral Trunk Lean Factors Limiting Gait Function Factors Limiting Gait Function Decreased Activity Tolerance Decreased Strength Pain PT-OP-J Posture/Palpation/Skin Start: 09/22/18 16:27 Freq: Status: Active Protocol: Document 02/09/19 17:04 EA (Rec: 02/09/19 17:05 EA [id number]) Posture Evaluation Position Standing Evaluation View lat/post L-Spine Posture Increased Lordosis Pelvis Posture Anteriorly Tilted Comments Posture Comments Fair posture with increased lumbar lordosis Palpation Assessment Location One Palpation Location Both QL > paralumbars Palpation Findings Soft Tissue Tightness Tenderness PT-OP-K Range of Motion Start: 09/22/18 16:27 Freq: Status: Active Protocol: Document 02/09/19 17:04 EA (Rec: 02/09/19 17:05 EA [id number]) Lumbar Spine Range of Motion Lumbar Spine Active Percentage Testing Position Standing Flexion 80 Extension 75 Rotation Left 70 Rotation Right 70 Lateral Flexion Left 60 Lateral Flexion Right 60 ROM Limitations Soft Tissue Tightness Pain PT-OP-L Special Tests Start: 09/22/18 16:27 Freq: Status: Active Protocol: Document 09/22/18 17:05 EA (Rec: 10/07/18 08:10 EA [id number]) Special Tests Lumbar Spine Special Tests Stork Test Test Results - Slump Test Results - Other- 1 Test Results + Debbie's PT-OP-M Strength Start: 09/22/18 16:27 Freq: Status: Active Protocol: Document 09/22/18 17:05 EA (Rec: 10/07/18 08:10 EA [id number]) Hip Strength Hip Manual Muscle Testing Right Flexion (L2) 2+ Poor+ Extension (S1) 3+ Fair+ Abduction 3+ Fair+ Adduction 4 Good External Rotation 3- Fair- Internal Rotation 3- Fair- Knee Strength Knee Manual Muscle Testing Right Flexion (S2) 3+ Fair+ Extension (L3) 3+ Fair+ Ankle/Foot Strength Ankle and Foot Manual Muscle Testing Right Dorsiflexion (L4) 3- Fair- Plantarflexion (S1) 3- Fair- Inversion 3- Fair- Eversion (S1) 3- Fair- PT-OP-Q Treatments Start: 09/22/18 16:27 Freq: Status: Active Protocol: Document 02/17/19 16:38 EA (Rec: 02/17/19 16:43 EA [id number]) Cardio Equipment Recumbent Stepper (Sci-Fit) Duration (Minutes) 7 Resistance 3 Seat Position 12 Gym Equipment Cable Column (Body Solid) Hip Adduction Resistance 30 -40lbs x 15 reps x 2 Leg Extension Resistance 20-30 lbs Reps/Time x 15 reps x2 Hip Abduction Resistance 30-40 lbs Reps/Time x 15 reps x 2 Shuttle Recovery Unilateral Squats Resistance 2 cord Reps/Time x 15 reps x 2 Bilateral Squats Resistance 4 cords Reps/Time x 15 reps x 3 Therapeutic Exercises Supine Exercises 7 Supine Exercise Name Partial bridge Reps/Minutes x 5 reps x 3SH 6 Supine Exercise Name SLR w/ PPT Reps/Minutes x 3SH x 5 reps 5 Supine Exercise Name Lumbars rotation/lower Reps/Minutes x 15 reps x 2 sets Sitting Exercises 2 Sitting Exercise Name Lumbar side flexors stretch 1 Reps/Minutes x 30SH x 2 reps Comments assess breathing PT-OP-R Modalities Start: 09/22/18 16:27 Freq: Status: Active Protocol: Document 02/17/19 16:43 EA (Rec: 02/17/19 16:43 EA [id number]) Electric Stimulation Electric Stimulation Interferential Current (IFC) Body Location Paralumbars; left and right QL Duration (Minutes) 15 Intensity 22 Combined With Heat/Cold Hot Pack Comments sitting position PT-OP-T Assessment and Plan Start: 09/22/18 16:27 Freq: Status: Active Protocol: Document 02/17/19 16:38 EA (Rec: 02/17/19 16:43 EA [id number]) Physical Therapy Assessment Assessment Summary Assessment Pt had improved strength in all exercises. Despite advised to use cane with ambulation, patient refused to do it. Explained the benefits of it in relation to low back. Physical Therapy Plan Next Visit Focus/Plan Next Note Type Treatment Note Next Visit Plan Cont with current plan of strengthening to both LE
--- NOTE | 2019-02-24 15:34 | PT.OTN ---
Current Diagnoses Low back pain (02/24/19) Physical Therapy Treatment Note PT-OP-A Visit Information Start: 09/22/18 16:27 Freq: Status: Active Protocol: Document 02/24/19 15:25 SA (Rec: 02/24/19 15:34 SA [id number]) Out-Patient Physical Therapy Visit Information Visit Information Visit Type Treatment Note Visit Start Time 14:30 Visit Stop Time 15:24 Visit Number 17 Number of PROGRAM MANAGER Visits 1 PT-OP-B Current Condition Start: 09/22/18 16:27 Freq: Status: Active Protocol: Document 09/22/18 17:22 EA (Rec: 10/06/18 07:31 EA [id number]) Current Condition History of Current Condition Onset Date June 2018 History of Current Condition Present condition has been chronic for more than 5 years and excacerbated last June 2018 with no known reason. Patient had RLE surgery while in [place] and denies regain of full RLE strength. 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 [facility] X-ray done: Spinal stenosis dx. Future Testing and Treatments Planned None identified. 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 Current Functional Impairments (Reported) Functional Limitations- ADL's Indep with difficulty in all activities with lifting and bending Functional Limitations- Mobility/Gait Indep with limited distance Functional Limitations- Work/School Limited at work in the machine shop PT-OP-C Subjective Start: 09/22/18 16:27 Freq: Status: Active Protocol: Document 02/24/19 15:25 SA (Rec: 02/24/19 15:34 SA [id number]) OP-PT Subjective Patient Comments Patient Comments Pt reports low back pain persists and walking is the most painful activity, sitting or lying down relieves it. PT-OP-F Manual Assessment Start: 09/22/18 16:27 Freq: Status: Active Protocol: Document 02/09/19 17:04 EA (Rec: 02/09/19 17:05 EA [id number]) Manual Assessments Soft Tissue Assessment Soft Tissue Mobility Assessment Tight Paralumbars, QL. PT-OP-G Mobility & Gait Start: 09/22/18 16:27 Freq: Status: Active Protocol: Document 09/22/18 17:22 EA (Rec: 10/06/18 07:31 EA [id number]) OP Gait Assessment Gait Gait Assistance Required: Independent Able to Maintain Weight Bearing Status Yes During Gait Gait Deviations General Gait Pattern Antalgic Lateral Trunk Lean Factors Limiting Gait Function Factors Limiting Gait Function Decreased Activity Tolerance Decreased Strength Pain PT-OP-J Posture/Palpation/Skin Start: 09/22/18 16:27 Freq: Status: Active Protocol: Document 02/09/19 17:04 EA (Rec: 02/09/19 17:05 EA [id number]) Posture Evaluation Position Standing Evaluation View lat/post L-Spine Posture Increased Lordosis Pelvis Posture Anteriorly Tilted Comments Posture Comments Fair posture with increased lumbar lordosis Palpation Assessment Location One Palpation Location Both QL > paralumbars Palpation Findings Soft Tissue Tightness Tenderness PT-OP-K Range of Motion Start: 09/22/18 16:27 Freq: Status: Active Protocol: Document 02/09/19 17:04 EA (Rec: 02/09/19 17:05 EA [id number]) Lumbar Spine Range of Motion Lumbar Spine Active Percentage Testing Position Standing Flexion 80 Extension 75 Rotation Left 70 Rotation Right 70 Lateral Flexion Left 60 Lateral Flexion Right 60 ROM Limitations Soft Tissue Tightness Pain PT-OP-L Special Tests Start: 09/22/18 16:27 Freq: Status: Active Protocol: Document 09/22/18 17:05 EA (Rec: 10/07/18 08:10 EA [id number]) Special Tests Lumbar Spine Special Tests Stork Test Test Results - Slump Test Results - Other- 1 Test Results + Debbie's PT-OP-M Strength Start: 09/22/18 16:27 Freq: Status: Active Protocol: Document 09/22/18 17:05 EA (Rec: 10/07/18 08:10 EA [id number]) Hip Strength Hip Manual Muscle Testing Right Flexion (L2) 2+ Poor+ Extension (S1) 3+ Fair+ Abduction 3+ Fair+ Adduction 4 Good External Rotation 3- Fair- Internal Rotation 3- Fair- Knee Strength Knee Manual Muscle Testing Right Flexion (S2) 3+ Fair+ Extension (L3) 3+ Fair+ Ankle/Foot Strength Ankle and Foot Manual Muscle Testing Right Dorsiflexion (L4) 3- Fair- Plantarflexion (S1) 3- Fair- Inversion 3- Fair- Eversion (S1) 3- Fair- PT-OP-Q Treatments Start: 09/22/18 16:27 Freq: Status: Active Protocol: Document 02/24/19 15:25 SA (Rec: 02/24/19 15:34 SA [id number]) Cardio Equipment Recumbent Stepper (Sci-Fit) Duration (Minutes) 7 Resistance 3 Seat Position 12 Gym Equipment Cable Column (Body Solid) Hip Adduction Resistance 30 -40lbs x 15 reps x 2 Leg Extension Resistance 20-30 lbs Reps/Time x 15 reps x2 Hip Abduction Resistance 30-40 lbs Reps/Time x 15 reps x 2 Shuttle Recovery Unilateral Squats Resistance 2 cord Reps/Time x 15 reps x 2 Bilateral Squats Resistance 4 cords Reps/Time x 15 reps x 3 Therapeutic Exercises Supine Exercises 7 Supine Exercise Name Partial bridge Reps/Minutes x 5 reps x 3SH 6 Supine Exercise Name SLR w/ PPT Reps/Minutes x 3SH x 5 reps Sitting Exercises 2 Sitting Exercise Name Lumbar side flexors stretch Side bilateral Reps/Minutes 30 x 2 each PT-OP-R Modalities Start: 09/22/18 16:27 Freq: Status: Active Protocol: Document 02/24/19 15:25 SA (Rec: 02/24/19 15:34 SA [email or web address]) Electric Stimulation Electric Stimulation Interferential Current (IFC) Body Location Paralumbars; left and right QL Duration (Minutes) 15 Intensity 25 Combined With Heat/Cold Hot Pack Comments sitting position PT-OP-T Assessment and Plan Start: 09/22/18 16:27 Freq: Status: Active Protocol: Document 02/24/19 15:25 SA (Rec: 02/24/19 15:34 SA [email or web address]) Physical Therapy Assessment Assessment Summary Assessment Pt somewhat inconsistent with HEP, use of SPC may reduce pain with ambulation and help limit lateral movement but pt is hesitant to use SPC, stating he only uses for long distances. Physical Therapy Plan Next Visit Focus/Plan Next Note Type Treatment Note Next Visit Plan Cont to progress LE and core strengthening, promote use of SPC with gait.
--- NOTE | 2019-03-30 15:14 | PT.OPDS ---
Current Diagnoses Low back pain (02/24/19) Provider Visit Care Team Role Provider Type Robin Reyes MD Attending Provider Non-Staff Primary Care Provider Specialty: Emergency Medicine Address: [address] [place] [address], [place], [address] Email: Visit Number Visit Number 17 Discharge Summary PT-OP-B Current Condition Start: 09/22/18 16:27 Freq: Status: Active Protocol: Document 09/22/18 17:22 EA (Rec: 10/06/18 07:31 EA [id number]) Current Condition History of Current Condition Onset Date June 2018 History of Current Condition Present condition has been chronic for more than 5 years and excacerbated last June 2018 with no known reason. Patient had RLE surgery while in [place] and denies regain of full RLE strength. 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 [facility] X-ray done: Spinal stenosis dx. Future Testing and Treatments Planned None identified. 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 Current Functional Impairments (Reported) Functional Limitations- ADL's Indep with difficulty in all activities with lifting and bending Functional Limitations- Mobility/Gait Indep with limited distance Functional Limitations- Work/School Limited at work in the machine shop PT-OP-C Subjective Start: 09/22/18 16:27 Freq: Status: Active Protocol: Document 03/30/19 15:12 EA (Rec: 03/30/19 15:14 EA [id number]) OP-PT Subjective Patient Comments Patient Comments Email received from front end software engineer stating that called on 03/27/19 and wants to be discharged from skilled PT due to incoming back surgery. PT-OP-F Manual Assessment Start: 09/22/18 16:27 Freq: Status: Active Protocol: Document 02/09/19 17:04 EA (Rec: 02/09/19 17:05 EA [id number]) Manual Assessments Soft Tissue Assessment Soft Tissue Mobility Assessment Tight Paralumbars, QL. PT-OP-G Mobility & Gait Start: 09/22/18 16:27 Freq: Status: Active Protocol: Document 09/22/18 17:22 EA (Rec: 10/06/18 07:31 EA [id number]) OP Gait Assessment Gait Gait Assistance Required: Independent Able to Maintain Weight Bearing Status Yes During Gait Gait Deviations General Gait Pattern Antalgic Lateral Trunk Lean Factors Limiting Gait Function Factors Limiting Gait Function Decreased Activity Tolerance Decreased Strength Pain PT-OP-J Posture/Palpation/Skin Start: 09/22/18 16:27 Freq: Status: Active Protocol: Document 02/09/19 17:04 EA (Rec: 02/09/19 17:05 EA [id number]) Posture Evaluation Position Standing Evaluation View lat/post L-Spine Posture Increased Lordosis Pelvis Posture Anteriorly Tilted Comments Posture Comments Fair posture with increased lumbar lordosis Palpation Assessment Location One Palpation Location Both QL > paralumbars Palpation Findings Soft Tissue Tightness Tenderness PT-OP-K Range of Motion Start: 09/22/18 16:27 Freq: Status: Active Protocol: Document 02/09/19 17:04 EA (Rec: 02/09/19 17:05 EA [id number]) Lumbar Spine Range of Motion Lumbar Spine Active Percentage Testing Position Standing Flexion 80 Extension 75 Rotation Left 70 Rotation Right 70 Lateral Flexion Left 60 Lateral Flexion Right 60 ROM Limitations Soft Tissue Tightness Pain PT-OP-L Special Tests Start: 09/22/18 16:27 Freq: Status: Active Protocol: Document 09/22/18 17:05 EA (Rec: 10/07/18 08:10 EA [id number]) Special Tests Lumbar Spine Special Tests Stork Test Test Results - Slump Test Results - Other- 1 Test Results + Debbie's PT-OP-M Strength Start: 09/22/18 16:27 Freq: Status: Active Protocol: Document 09/22/18 17:05 EA (Rec: 10/07/18 08:10 EA [id number]) Hip Strength Hip Manual Muscle Testing Right Flexion (L2) 2+ Poor+ Extension (S1) 3+ Fair+ Abduction 3+ Fair+ Adduction 4 Good External Rotation 3- Fair- Internal Rotation 3- Fair- Knee Strength Knee Manual Muscle Testing Right Flexion (S2) 3+ Fair+ Extension (L3) 3+ Fair+ Ankle/Foot Strength Ankle and Foot Manual Muscle Testing Right Dorsiflexion (L4) 3- Fair- Plantarflexion (S1) 3- Fair- Inversion 3- Fair- Eversion (S1) 3- Fair- PT-OP-T Assessment and Plan Start: 09/22/18 16:27 Freq: Status: Active Protocol: Document 03/30/19 15:12 MARTIN (Rec: 03/30/19 15:14 MARTIN [id number]) Physical Therapy Assessment Assessment Summary Assessment Patient is discharge upon request. Physical Therapy Plan Discharge Physical Therapy Discharge Reasons Patient Request Next Visit Focus/Plan Next Note Type Discharge Summary
== END 2019-03-30 17:00 | disposition home or self-care (01) ==
LOC: PHYS 14:30
PROVIDERS: PCP Emergency Medicine Emergency Medical Services; Visit Provider Emergency Medicine Emergency Medical Services
DX: M54.5 Low back pain (principal)
CPT/HCPCS: 97014; 97110; 97112; 97140; 97162; 97535; G0283

== ENCOUNTER 2019-04-21 13:05 | Outpatient (CLI) | payer OTHER, SELFPAY ==
[2019-04-21] VITALS (7 sets, daily range): BP systolic 129–152; BP diastolic 37–70; PULSE 54–67; RESP 16–18; TEMP 36.3; O2SAT 96–98
--- NOTE | 2019-04-21 13:07 | DI.RAD.S_ITS ---
PROCEDURE: PAIN L/SI FACET INJ/BLK 1STL INDICATIONS: SPONDYLOSIS FINDINGS: Fluoroscopic spot filming was performed to verify placement of spinal needles at the level(s), as labeled on the films. Appropriate location(s) of the needle tip(s) was confirmed by injection of iodinated contrast. IMPRESSION: Fluoroscopy for pain management. Dictated by: Stephanie Kaufman M.D. on 04/21/2019 at 17:05 Approved by: Stephanie Kaufman M.D. on 04/21/2019 at 17:06
[2019-04-21] MEDS: MIDAZOLAM 5 MG/5 ML VIAL IV (14:41)
[2019-04-21] MEDS: IOPAMIDOL 15 ML VIAL 3 ML INJ (14:53)
[2019-04-21] MEDS: BETAMETHASONE 30 MG/5 ML MDV 12 MG INJ (14:54)
[2019-04-21] MEDS: LIDOCAINE 1% 20 ML INJ 10 ML INJ (14:54)
[2019-04-21] MEDS: BUPIVACAINE 0.5% (PF) VIAL 2 ML INJ (14:54)
--- NOTE | 2019-04-21 14:56 | PC.NURSE ---
ASSISTING PT OFF TABLE AND TRANSPORTING TO POST PROC AREA IN STABLE CONDITION
--- NOTE | 2019-04-21 15:05 | P.PCN_ITS ---
Procedures Date/Time Date of procedure: 04/21/19 Time of procedure: 15:04 General Procedure description: PREOP DIAGNOSIS 1. FACET ARTHROPATHY 2. AXIAL LBP 3. MULTILEVEL DDD POST OP DIAGNOSIS 1. FACET ARTHROPATHY 2. AXIAL LBP 3. MULTILEVEL DDD PROCEDURES 1. FLUORSCOPICALLY GUIDED CONTRAST CONTROLLED FACET JOINT INJECTIONS BILATERAL L4/5, L5/S1 PHYSICIAN: Alf Finch, DO INDICATIONS is referred by Dr. Reyes for treatment of Axial LBP FINDINGS Multilevel Facet Arthropathy with Clinically significant axial LBP DESCRIPTION OF PROCEDURE Fluoroscopically guided, contrast-controlled bilateral L4/5, L5/S1 facet joint injections. Following review of allergy and review of potential side effects and complications, including, but not necessarily limited to, infection, allergic reaction, local tissue breakdown, stroke, temporary or permanent nerve injury, paralysis, and possible , the patient indicated that the patient understood and agreed to proceed. An informed consent document was signed by the patient, witnessed by a nurse, and placed in the patient's chart. Additionally, other treatment options including medications, modalities, and physical therapy were reviewed with the patient. After review of previous anaesthesic history and IV conscious sedation the patient was deemed safe to proceed with todays procedure with IV conscious sedation as ASA class II designation. Safety time-out was performed to confirm patient ID, procedure to be performed and site of procedure. IV sedation was accomplished with a combination of 2mg of Versed was administered by the RN after DO order, titrated to patient comfort during the course of the procedure while the patient remained responsive to all verbal commands In the prone position, following sterile prep and drape of the lumbar region, the posterior aspect of the L4/5, L5/S1 facet joints were identified fluoroscopically. The skin was anesthetized via a 25-gauge 1.5-inch needle with 1% lidocaine solution into the corresponding facet joints. At this point, a 22- gauge 3.5-inch spinal needle was atraumatically introduced and advanced under fluoroscopic guidance into the corresponding facet joints. Following negative aspiration, injections of approximately 0.2-cc of Isovue 200 confirmed interarticular placement without vascular uptake. The identical procedure was then performed at the L4/5, L5/S1 facet joints on the left. Radiological data, including multiple fluoroscopic views of the lumbosacral spine, reveal a spinal needle at the L4/5, L5/S1 facet joints bilaterally. Subsequent views show flow of contrast material both superiorly and inferiorly within the joint space without vascular or intrathecal uptake. At this point, a total of 0.5 cc including a mixture of 0.25cc Marcaine and 0.25cc betamethasone was injected without complication into each of the corresponding facet joints. The patient tolerated the procedure well without signs or symptoms of complications prior to transfer to the recovery area continued monitoring without incident. The patient was then transferred to the recovery area where they were observed for an appropriate period of time after the injection. The patient reported a VAS score of 7 prior to the procedure and a post- procedure VAS of 0. Total Fluoroscopy Time: 20.3 seconds Total Conscious Sedation Time: 24min POST OP INSTRUCTIONS The patient was provided a Pain Log to continue to record their response to the target-specific procedure prior to follow-up visit with their referring physician. Additionally, specific post-injection care instructions and a contact number to our office were provided if concerns arise regarding possible complications associated with the procedure are suspected. Alf Finch DO Complications: none
--- NOTE | 2019-04-21 15:05 | PC.NURSE ---
pt returned from post procedure a little drowsy and needed 2person assist to transfer into chair from W/C. Resumed monitoring from Ghazala BRAMBILA.
--- NOTE | 2019-04-21 15:31 | PC.NURSE ---
pt more alert now and drinking coffee, chatting and eating cookies, asking appropriate questions.
== END 2019-04-21 15:51 ==
LOC: RAD 13:06
PROVIDERS: PCP Emergency Medicine Emergency Medical Services; Visit Provider Physical Medicine & Rehabilitation
DX: M47.816 Spondylosis without myelopathy or radiculopathy, lumbar region (principal); M47.817 Spondylosis without myelopathy or radiculopathy, lumbosacral region; M54.5 Low back pain; M51.36 Other intervertebral disc degeneration, lumbar region; M51.37 Other intervertebral disc degeneration, lumbosacral region
CPT/HCPCS: 64493; 64494; 99152; J0702; J2250; J3010